=== PATIENT | female | born 1960 | race Caucasian/White ===

== ENCOUNTER 2017-01-02 17:13 | Inpatient (IN) | payer OTHER ==
--- NOTE | 2017-01-02 18:17 | PCM.HP ---
H&P History of Present Illness - General Date of Service: 01/02/17 Admit Problem/Dx: Admission Diagnosis/Problem Admission Diagnosis/Problem Pyelonephritis - History of Present Illness Initial Comments - Free Text/Narative: Ms. Lentz is a 56 yo female with PMH of seizure disorder and hypertension who presented to clinic for evaluation of 1 week of significant nausea and decreased appetite. She was actually hopeful of getting something to control her symptoms so that she could return to work. She has had lower abdominal pain significant enough that it was even difficult for her to button her pants but this has improved. She did have recurrent episodes of vomiting last week but that seems to be improved as well. She has also had some back pain, generalized myalgias, and a cough. She had some chest pain earlier in the week but this has improved, as has her cough. She cannot say that she has had any fever or chills. Although the majority of her symptoms have improved, her appetite remains poor and she started to feel dizzy when getting up from a seated position today. She has not taken anything for her symptoms. She has never had symptoms like this in the past. She has taken on average 3 tablets of ibuprofen daily. She has not taken any aleve. She denies any urinary symptoms. ROS otherwise negative as below. - Related Data Allergies/Adverse Reactions: Allergies Allergy/AdvReac Type Severity Reaction Status Date / Time No Known Allergies Allergy Verified 06/18/16 13:34 Home Medications: Home Meds carBAMazepine [Carbamazepine] 400 mg PO BID 11/08/15 [History] Hydrochlorothiazide/Lisinopril [Lisinopril/HCTZ 20-12.5 MG] 1 tab PO DAILY 06/18 [History] Past Medical History - Past Health History Medical/Surgical History: Denies Medical/Surgical History HEENT History: Reports: None Cardiovascular History: Reports: High cholesterol, Hypertension Respiratory History: Reports: None Gastrointestinal History: Reports: None Genitourinary History: Reports: None COLLEGE TUTOR History: Reports: Musculoskeletal History: Reports: None Neurological History: Reports: Cerebral aneurysms, Seizure Psychiatric History: Reports: Anxiety Endocrine/Metabolic History: Reports: None Hematologic History: Reports: None Immunologic History: Reports: None Oncologic (Cancer) History: Reports: None Dermatologic History: Reports: None - Infectious Disease History Infectious Disease History: Reports: None - Past Surgical History Head Surgeries/Procedures: Reports: Other (see below) Other Head Surgeries/Procedures: aneurysm clipping HEENT Surgical History: Reports: Eye surgery, Tonsillectomy GI Surgical History: Reports: Cholecystectomy Female Surgical History: Reports: Tubal ligation Social & Family History - Family History Neurological: Reports: CVA Psychiatric: Reports: Suicide attempt (brother committed suicide by hanging) Oncologic: Reports: Lung - Tobacco Use Smoking Status *Q: Former Smoker Tobacco Use Within Last Twelve Months: No Years of Tobacco use: 25 Packs/Tins Daily: 1 - Caffeine Use Caffeine Use: Reports: Coffee, Soda - Alcohol Use Days Per Week of Alcohol Use: 4 Number of Drinks Per Day: 4 Total Drinks Per Week: 16 Alcohol Use in Last Twelve Months: Yes - Recreational Drug Use Recreational Drug Use: No - Living Situation & Occupation Living situation: Reports: with significant other Occupation: employed H&P Review of Systems - Review of Systems: Review Of Systems: See Below General: Reports: malaise, weakness. Denies: fever, chills HEENT: Reports: no symptoms Pulmonary: Reports: Cough. Denies: Shortness of Breath, Pleuritic Chest Pain Cardiovascular: Reports: chest pain. Denies: palpitations, dyspnea on exertion , lightheadedness, syncope Gastrointestinal: Reports: Abdominal pain, Decreased appetite, Nausea, Vomiting. Denies: Constipation, Diarrhea Genitourinary: Reports: flank pain. Denies: dysuria, frequency, burning, urgency Musculoskeletal: Reports: no symptoms Skin: Reports: no symptoms Neurological: Reports: No Symptoms Exam - Exam Exam: See Below - Vital Signs Vital Signs: Last Vital Signs Temp 36.6 C 01/02/17 17:41 Pulse 85 01/02/17 17:41 Resp 18 01/02/17 17:41 BP 113/77 01/02/17 17:41 Pulse Ox 100 01/02/17 17:41 Weight: 51.764 kg - Exam General: alert, oriented, cooperative. No: mild distress, moderate distress, severe distress HEENT: Conjunctiva clear, Mucosa moist & pink, Posterior pharynx clear, Pupils equal, Pupils reactive, TMs clear Neck: supple, trachea midline. No: lymphadenopathy, thyromegaly Lungs: Clear to auscultation, Normal respiratory effort Cardiovascular: regular rate, regular rhythm, normal S1, normal S2. No: systolic murmur, diastolic murmur Abdomen: normal bowel sounds, soft, tenderness (generalized but greatest in the suprapubic region). No: organomegaly, guarding, rigidity, rebound Back Exam: CVA tenderness (L). No: CVA tenderness (R) Extremities: normal inspection, normal pulses. No: edema Skin: warm, dry, intact *Q Meaningful Use (ADM) - VTE *Q VTE Criteria *Q: - Stroke *Q Stroke Criteria *Q: - AMI *Q AMI Criteria *Q: - Problem List (1) Pyelonephritis SNOMED Code(s): 96910008 ICD Code: N12 - TUBULO-INTERSTITIAL NEPHRITIS, NOT SPCF ACUTE OR CHRONIC Status: Acute Current Visit: Yes Problem Details: - Diagnosis made based on CVA tenderness, abnormal u/a, and overall symptoms. Considered a viral syndrome but this would not explain the full picture of her symptoms. It also does not make sense that she would have an BRAN causing all of her symptoms given that her u/a was abnormal. - Slightly atypical that she does not have a leukocytosis but she does have leukopenia. - At this point, we will go ahead and treat with ceftriaxone. - She does not meet sepsis criteria. She will get IV fluids overnight and can receive boluses PRN. - Urine will be sent for culture. Would plan to await culture results before dismissing her home. (2) Acute kidney injury SNOMED Code(s): 14656222 ICD Code: N17.9 - ACUTE KIDNEY FAILURE, UNSPECIFIED Status: Acute Current Visit: Yes Problem Details: - Applications Support Specialist more than double her baseline. BUN: Applications Support Specialist is consistent with a prerenal etiology. - Presumed to be secondary to the pyelonephritis and to dehydration. No evidence this is nephrolithiasis or other obstruction. Per history, she has not been taking enough NSAIDs to acute for this increase. - U/A shows protein stable from previous and no hematuria or casts. - Will give IV fluids overnight. - Recheck BMP in the am. If creatinine is not improving, will consider a CT scan to evaluate for a possible stone. - Hold antihypertensives as well for now. - Renally dose medications. Avoid nephrotoxic agents. (3) Dehydration SNOMED Code(s): 35497763 ICD Code: E86.0 - DEHYDRATION Status: Acute Current Visit: Yes Problem Details: - Labs are consistent with dehydration. Her oropharynx is moist but maybe less so than previous. - Will do IV fluids overnight at 1.5x maintenance. Bolus as needed for hypotension. (4) Essential hypertension SNOMED Code(s): 40220053 ICD Code: I10 - ESSENTIAL (PRIMARY) HYPERTENSION Status: Chronic Current Visit: Yes Problem Details: - Hold antihypertensives given BRAN. - If creatinine improving tomorrow, will restart HCTZ first and add back lisinopril as indicated. (5) Seizure disorder SNOMED Code(s): 213302445 ICD Code: G40.909 - EPILEPSY, UNSP, NOT INTRACTABLE, WITHOUT STATUS EPILEPTICUS Status: Chronic Current Visit: Yes Problem Details: - Continue tegretol. - From what I can see, this should not really accumulate with BRAN and should not contribute to BRAN either. Therefore, will continue at home dose. Problem List Initiated/Reviewed/Updated: Yes Orders Last 24hrs: Active Orders 24 hr Category Date Time Status Admission Status [Patient Status] [ADT] Routine ADT 01/02/17 17:17 Active Notify Provider Vital Signs [RC] ASDIRECTED Care 01/02/17 18:05 Ordered Oxygen Therapy [RC] PRN Care 01/02/17 18:04 Ordered Up With Assistance [RC] ASDIRECTED Care 01/02/17 18:04 Ordered VTE/DVT Education [RC] PER UNIT ROUTINE Care 01/02/17 18:04 Ordered Vital Signs [RC] Q4H Care 01/02/17 18:04 Ordered Regular Diet [DIET] Diet 01/02/17 Dinner Ordered Acetaminophen [Tylenol] Med 01/02/17 18:04 Ordered 650 mg PO Q4H PRN Heparin Sodium Med 01/02/17 18:15 Ordered 5,000 units SUBCUT Q8H Sodium Chloride 0.9% @ 125 MLS/HR (1000ml) Med 01/02/17 18:15 Ordered Sodium Chloride 0.9% [Normal Saline] 1,000 ml IV ASDIRECTED cefTRIAXone [Rocephin] Med 01/02/17 18:15 Ordered 1 gm IVPUSH Q24H Resuscitation Status Routine Resus Stat 01/02/17 18:04 Ordered Medication Orders Acetaminophen (Tylenol) 650 mg PO Q4H PRN PRN Reason: Pain (Mild 1-3)/fever Ceftriaxone Sodium (Rocephin) 1 gm IVPUSH Q24H [facility] Heparin Sodium (Porcine) (Heparin Sodium) 5,000 units SUBCUT Q8H [facility] Sodium Chloride (Normal Saline) 1,000 mls @ 125 mls/hr IV ASDIRECTED [facility] Assessment/Plan Comment:: 56 yo female presenting with significant decreased appetite, nausea with vomiting, and dizziness who is admitted with presumed pyelonephritis and BRAN. Urine will be sent for culture. She will be treated with ceftriaxone until susceptibilities available. IV fluids overnight. Recheck labs in the am. Patient will be admitted under acute status as she will be receiving IV fluids and IV antibiotics - anticipate about 48-72 hours for her hospital stay. She will be on heparin for VTE prophylaxis given BRAN. She wishes to be full code.
[2017-01-02] MEDS: Sodium Chloride 0.9% 1,000 ML IV SCH (19:50)
[2017-01-02] MEDS: Heparin Sodium 5,000 Units/ML Vial SUBCUT SCH (19:53)
[2017-01-02] MEDS: cefTRIAXone 1 GM Vial IVPUSH SCH (19:54)
[2017-01-02] MEDS: carBAMazepine 200 MG Tab PO SCH (19:54)
[2017-01-02] MEDS: Acetaminophen 325 MG Tab PO PRN (20:05)
[2017-01-03] MEDS: Heparin Sodium 5,000 Units/ML Vial SUBCUT SCH ×5 (02:19→23:58)
[2017-01-03] MEDS: Sodium Chloride 0.9% 1,000 ML IV SCH (03:56)
--- NOTE | 2017-01-03 08:27 | PCM.PN ---
- General Info Date of Service: 01/03/17 Subjective Update: Patient notes she feels rested this morning as she slept well. She is having better urine output. Otherwise, she feels about the same as yesterday. Still with mild general abdominal pain and decreased appetite. No dysuria, fever, or chills. - Review of Systems General: Reports: No Symptoms HEENT: Reports: no symptoms Pulmonary: Reports: no symptoms Cardiovascular: Reports: No Symptoms Gastrointestinal: Reports: Abdominal pain, Decreased appetite. Denies: Nausea, Vomiting Genitourinary: Reports: no symptoms Musculoskeletal: Reports: no symptoms Skin: Reports: no symptoms - Patient Data Vitals - most recent: Last Vital Signs Temp 36.6 C 01/03/17 05:42 Pulse 75 01/03/17 02:00 Resp 16 01/03/17 05:42 BP 108/72 01/03/17 05:42 Pulse Ox 99 01/03/17 05:42 Weight - most recent: 51.764 kg I&O - last 24 hours: Intake & Output 01/02/17 01/03/17 01/03/17 22:59 06:59 14:59 Intake Total 1517 Output Total 250 300 Balance 1267 -300 Lab Results last 24 hrs: Laboratory Results - last 24 hr 01/03/17 01/03/17 Range/Units 06:15 06:15 WBC 2.2 L (4.0-10.0) x10^3/uL RBC 3.62 L (4.00-5.50) x10^6/uL Hgb 11.0 L (12.0-16.0) g/dL Hct 32.8 L (33.0-47.0) % MCV 90.6 (78.0-93.0) fL MCH 30.4 (26.0-32.0) pg MCHC 33.5 (32.0-36.0) g/dL RDW Coeff of Alejandro 12.2 (10.0-15.0) % Plt Count 166 (130-400) x10^3/uL Add Manual Diff Yes Neutrophils % (Manual) 35 L (50-80) % Band Neutrophils % 3 (0-6) % Lymphocytes % (Manual) 53 H (25-50) % Atypical Lymphs % 3 H (0) % Monocytes % (Manual) 3 (2-11) % Eosinophils % (Manual) 3 (0-4) % Platelet Estimate Adequate Sodium 140 (136-145) mmol/L Potassium 3.3 L (3.5-5.1) mmol/L Chloride 102 (98-107) mmol/L Carbon Dioxide 28 (21-32) mmol/L BUN 52 H (7-18) mg/dL Creatinine 1.3 H (0.55-1.02) mg/dL Est Cr Clr Drug Dosing 40.43 mL/min Estimated GFR (MDRD) 43 Glucose 85 (74-106) mg/dL Calcium 8.1 L (8.5-10.1) mg/dL Med Orders - Current: Current Medications Acetaminophen (Tylenol) 650 mg PO Q4H PRN PRN Reason: Pain (Mild 1-3)/fever Last Admin: 01/02/17 20:05 Dose: 650 mg Carbamazepine (Tegretol Tab) 400 mg PO BID [facility] Last Admin: 01/02/17 19:54 Dose: 400 mg Ceftriaxone Sodium (Rocephin) 1 gm IVPUSH Q24H [facility] Last Admin: 01/02/17 19:54 Dose: 1 gm Heparin Sodium (Porcine) (Heparin Sodium) 5,000 units SUBCUT Q8H [facility] Last Admin: 01/03/17 02:19 Dose: 5,000 units Potassium Chloride/Sodium Chloride (Normal Saline With 20 Meq Kcl) 1,000 mls @ 100 mls/hr IV ASDIRECTED [facility] Discontinued Medications Sodium Chloride (Normal Saline) 1,000 mls @ 125 mls/hr IV ASDIRECTED [facility] Last Admin: 01/03/17 03:56 Dose: 125 mls/hr - Exam General: alert, cooperative, no acute distress HEENT: Pupils equal, Pupils reactive, Mucous membr. moist/pink Neck: supple, trachea midline, no thyromegaly. No: lymphadenopathy Lungs: Clear to auscultation, Normal respiratory effort Cardiovascular: Regular Rate, Regular Rhythm, No Murmurs Abdomen: bowel sounds present, soft, no distension, tenderness (diffusely but most prominent in the epigastrium). No: rigidity, rebound, guarding Back Exam: CVA tenderness (L). No: CVA tenderness (R) Extremities: no edema, normal pulses Skin: warm, dry, intact - Problem List & Annotations (1) Pyelonephritis SNOMED Code(s): 91649622 Code(s): N12 - TUBULO-INTERSTITIAL NEPHRITIS, NOT SPCF ACUTE OR CHRONIC Status: Acute Current Visit: Yes Annotation/Comment:: - Diagnosis made based on CVA tenderness, abnormal u/a, and overall symptoms. Slightly atypical that she does not have a leukocytosis but she does have leukopenia. - Continue ceftriaxone. - Urine culture pending. Would plan to await culture results before dismissing her home. (2) Acute kidney injury SNOMED Code(s): 11381325 Code(s): N17.9 - ACUTE KIDNEY FAILURE, UNSPECIFIED Status: Acute Current Visit: Yes Annotation/Comment:: - Blue Split Trimmer improved slightly today. Her BUN is still quite high. - Presumed prerenal etiology based on history and BUN:Blue Split Trimmer as well as the fact that she is improving with IV fluids alone. - Presumed to be secondary to the pyelonephritis and to dehydration. - U/A shows protein stable from previous and no hematuria or casts. - Continue IV hydration. Will add potassium to fluids given hypokalemia this morning. - Recheck BMP in the am. If creatinine is not improving, will consider a CT scan to evaluate for a possible stone. - Continue to hold antihypertensives. - Renally dose medications. Avoid nephrotoxic agents. (3) Dehydration SNOMED Code(s): 94703797 Code(s): E86.0 - DEHYDRATION Status: Acute Current Visit: Yes Annotation/Comment:: - Labs are consistent with dehydration. - Continue IV fluids. (4) Hypokalemia SNOMED Code(s): 99172976 Code(s): E87.6 - HYPOKALEMIA Status: Acute Current Visit: Yes Annotation/Comment:: - Add potassium to fluids as above. (5) Essential hypertension SNOMED Code(s): 34245264 Code(s): I10 - ESSENTIAL (PRIMARY) HYPERTENSION Status: Chronic Current Visit: Yes Annotation/Comment:: - Hold antihypertensives given BRAN. - BP has been normal-low; therefore, will continue to hold both HCTZ and lisinopril. (6) Seizure disorder SNOMED Code(s): 173884543 Code(s): G40.909 - EPILEPSY, UNSP, NOT INTRACTABLE, WITHOUT STATUS EPILEPTICUS Status: Chronic Current Visit: Yes Annotation/Comment:: - Continue tegretol. - From what I can see, this should not really accumulate with BRAN and should not contribute to BRAN either. Therefore, will continue at home dose. - Problem List Review Problem List Initiated/Reviewed/Updated: Yes - My Orders Last 24 Hours: My Active Orders 01/02/17 17:17 Admission Status [Patient Status] [ADT] Routine 01/02/17 18:04 Oxygen Therapy [RC] .PRN Up With Assistance [RC] ASDIRECTED VTE/DVT Education [RC] .PRN Vital Signs [RC] 06,10,14,18,22,02 Acetaminophen [Tylenol] 650 mg PO Q4H PRN Resuscitation Status Routine 01/02/17 18:05 Notify Provider Vital Signs [RC] 06,10,14,18,22,02 01/02/17 18:15 Heparin Sodium 5,000 units SUBCUT Q8H 01/02/17 19:00 cefTRIAXone [Rocephin] 1 gm IVPUSH Q24H 01/02/17 20:00 carBAMazepine [TEGretol Tab] 400 mg PO BID 01/02/17 Dinner Regular Diet [DIET] 01/03/17 02:27 CULTURE URINE [RM] Routine 01/03/17 08:30 Sodium Chloride 0.9% with KCl 20 mEq @ 100 mL/Hr (1000 mL) NS + KCl 20mEq/L [ Normal Saline with 20 mEq KCl] 1,000 ml IV ASDIRECTED 01/04/17 05:11 BASIC METABOLIC PANEL,BMP [CHEM] Routine CBC WITH AUTO DIFF [HEME] Routine - Assessment Assessment:: 56 yo female admitted with pyelonephritis and BRAN after presenting with 1 week of multiple symptoms most notably decreased appetite, nausea, and vomiting. - Plan Plan:: Urine culture pending. Continue ceftriaxone until susceptibilities available. Continue IV fluids. Recheck labs in the am. Patient will be admitted under acute status as she will be receiving IV fluids and IV antibiotics - anticipate dismissal tomorrow. She will be on heparin for VTE prophylaxis given BRAN. She wishes to be full code.
[2017-01-03] MEDS: carBAMazepine 200 MG Tab PO SCH ×2 (08:47→19:43)
[2017-01-03] MEDS: NS + KCl 20mEq/L 1,000 ML IV SCH ×2 (08:47→18:30)
[2017-01-03] MEDS: Acetaminophen 325 MG Tab PO PRN ×2 (18:26→22:20)
[2017-01-03] MEDS: cefTRIAXone 1 GM Vial IVPUSH SCH (18:26)
[2017-01-04] MEDS: NS + KCl 20mEq/L 1,000 ML IV SCH (04:27)
[2017-01-04] MEDS: Heparin Sodium 5,000 Units/ML Vial SUBCUT SCH ×3 (07:30→23:40)
[2017-01-04] MEDS: carBAMazepine 200 MG Tab PO SCH ×2 (07:30→20:08)
[2017-01-04 07:35] LABS: CHLORIDE,CL 109 mmol/L (98-107); SODIUM,NA 144 mmol/L (136-145)
--- NOTE | 2017-01-04 08:53 | PCM.PN ---
- General Info Date of Service: 01/04/17 Subjective Update: Patient reports she feels better this morning. She continues to void without difficulty and notes that her abdominal and left flank pain are improved. She has had no fever or chills. She denies chest pain or shortness of breath. Her appetite still is not really improved and she has not been thirsty but she has also been getting IV fluids consistently since admission. - Review of Systems General: Reports: No Symptoms HEENT: Reports: no symptoms Pulmonary: Reports: no symptoms Cardiovascular: Reports: No Symptoms Gastrointestinal: Reports: Abdominal pain, Decreased appetite. Denies: Nausea, Vomiting Genitourinary: Reports: no symptoms Musculoskeletal: Reports: no symptoms Skin: Reports: no symptoms - Patient Data Vitals - most recent: Last Vital Signs Temp 36.7 C 01/04/17 07:52 Pulse 71 01/04/17 07:52 Resp 18 01/04/17 07:52 BP 159/90 H 01/04/17 07:52 Pulse Ox 98 01/04/17 07:52 Weight - most recent: 51.764 kg I&O - last 24 hours: Intake & Output 01/03/17 01/04/17 01/04/17 22:59 06:59 14:59 Intake Total 1349 1385 120 Output Total 400 600 Balance 949 785 120 Lab Results last 24 hrs: Laboratory Results - last 24 hr 01/04/17 01/04/17 Range/Units 06:25 06:25 WBC 2.2 L (4.0-10.0) x10^3/uL RBC 3.38 L (4.00-5.50) x10^6/uL Hgb 10.3 L (12.0-16.0) g/dL Hct 30.9 L (33.0-47.0) % MCV 91.4 (78.0-93.0) fL MCH 30.5 (26.0-32.0) pg MCHC 33.3 (32.0-36.0) g/dL RDW Coeff of Alejandro 12.0 (10.0-15.0) % Plt Count 173 (130-400) x10^3/uL Neut % (Auto) 38.2 L (50.0-80.0) % Lymph % (Auto) 45.9 (25.0-50.0) % Brooks % (Auto) 12.7 H (2.0-11.0) % Eos % (Auto) 2.7 (0.0-4.0) % Baso % (Auto) 0.5 (0.2-1.2) % Sodium 144 (136-145) mmol/L Potassium 3.8 (3.5-5.1) mmol/L Chloride 109 H (98-107) mmol/L Carbon Dioxide 24 (21-32) mmol/L BUN 24 H (7-18) mg/dL Creatinine 0.7 (0.55-1.02) mg/dL Est Cr Clr Drug Dosing 75.08 mL/min Estimated GFR (MDRD) > 60 Glucose 74 (74-106) mg/dL Calcium 8.2 L (8.5-10.1) mg/dL Med Orders - Current: Current Medications Acetaminophen (Tylenol) 650 mg PO Q4H PRN PRN Reason: Pain (Mild 1-3)/fever Last Admin: 01/03/17 22:20 Dose: 650 mg Carbamazepine (Tegretol Tab) 400 mg PO BID [facility] Last Admin: 01/04/17 07:30 Dose: 400 mg Ceftriaxone Sodium (Rocephin) 1 gm IVPUSH Q24H [facility] Last Admin: 01/03/17 18:26 Dose: 1 gm Heparin Sodium (Porcine) (Heparin Sodium) 5,000 units SUBCUT TID@0000,0800, 1600 [facility] Last Admin: 01/04/17 07:30 Dose: 5,000 units Hydrochlorothiazide (Hydrochlorothiazide) 12.5 mg PO DAILY [facility] Discontinued Medications Heparin Sodium (Porcine) (Heparin Sodium) 5,000 units SUBCUT Q8H [facility] Last Admin: 01/03/17 12:26 Dose: Not Given Sodium Chloride (Normal Saline) 1,000 mls @ 125 mls/hr IV ASDIRECTED [facility] Last Admin: 01/03/17 03:56 Dose: 125 mls/hr Potassium Chloride/Sodium Chloride (Normal Saline With 20 Meq Kcl) 1,000 mls @ 100 mls/hr IV ASDIRECTED [facility] Last Admin: 01/04/17 04:27 Dose: 100 mls/hr - Exam General: alert, cooperative, no acute distress HEENT: Mucous membr. moist/pink Neck: supple, no thyromegaly. No: lymphadenopathy Lungs: Clear to auscultation, Normal respiratory effort Cardiovascular: Regular Rate, Regular Rhythm, No Murmurs Abdomen: bowel sounds present, soft, no distension, tenderness (mild LUQ tenderness - improved from yesterday). No: rigidity, rebound, guarding Back Exam: CVA tenderness (L) (less prominent than yesterday). No: CVA tenderness (R) Extremities: no edema, normal pulses Skin: warm, dry, intact - Problem List & Annotations (1) Pyelonephritis SNOMED Code(s): 70741777 Code(s): N12 - TUBULO-INTERSTITIAL NEPHRITIS, NOT SPCF ACUTE OR CHRONIC Status: Acute Current Visit: Yes Annotation/Comment:: - Diagnosis made based on CVA tenderness, abnormal u/a, and overall symptoms. Slightly atypical that she does not have a leukocytosis but she does have leukopenia. - Continue ceftriaxone. - Urine culture pending. Would plan to await culture results before dismissing her home. - No imaging necessary at this point unless she were to spike a temperature or have worsening symptoms. (2) Acute kidney injury SNOMED Code(s): 74284286 Code(s): N17.9 - ACUTE KIDNEY FAILURE, UNSPECIFIED Status: Resolved Current Visit: Yes Annotation/Comment:: - Guest Services Manager back to normal today; BUN near normal. - Presumed prerenal etiology based on history, BUN:Guest Services Manager, and resolution with IV fluids alone. Likely secondary to the pyelonephritis and to dehydration. - Will d/c IV fluids today. - Encouraged her to push fluids PO. She will need to prove adequate PO intake to maintain hydration before dismissal home. - Continue to hold lisinopril but restart HCTZ given increased BPs overnight. - Renally dose medications. Avoid nephrotoxic agents. (3) Dehydration SNOMED Code(s): 99103038 Code(s): E86.0 - DEHYDRATION Status: Resolved Current Visit: Yes Annotation/Comment:: - Resolved this am. - As above, d/c IV fluids. Will encourage PO's today and anticipate dismissal tomorrow if she can keep up with this. (4) Hypokalemia SNOMED Code(s): 44967394 Code(s): E87.6 - HYPOKALEMIA Status: Resolved Current Visit: Yes Annotation/Comment:: - K normal today. (5) Essential hypertension SNOMED Code(s): 30945670 Code(s): I10 - ESSENTIAL (PRIMARY) HYPERTENSION Status: Chronic Current Visit: Yes Annotation/Comment:: - BP mildly up overnight. - Restart HCTZ; hold lisinopril for now but will watch today and potentially add this back as well. (6) Seizure disorder SNOMED Code(s): 948962374 Code(s): G40.909 - EPILEPSY, UNSP, NOT INTRACTABLE, WITHOUT STATUS EPILEPTICUS Status: Chronic Current Visit: Yes Annotation/Comment:: - Continue tegretol. - From what I can see, this should not really accumulate with BRAN and should not contribute to BRAN either. Therefore, will continue at home dose. - Problem List Review Problem List Initiated/Reviewed/Updated: Yes - My Orders Last 24 Hours: My Active Orders 01/03/17 16:00 Heparin Sodium 5,000 units SUBCUT TID@0000,0800,1600 01/04/17 08:30 Hydrochlorothiazide 12.5 mg PO DAILY - Assessment Assessment:: 56 yo female admitted with pyelonephritis and BRAN after presenting with 1 week of multiple symptoms most notably decreased appetite, nausea, and vomiting. Symptoms are slowly improving but her appetite remains poor. - Plan Plan:: Urine culture pending. Continue ceftriaxone until susceptibilities available. D/ C IV fluids; push PO fluids today. Recheck labs in the am. Hgb has been downtrending but I suspect this is related to hemodilution; will recheck tomorrow once she has been off IV fluids. Patient is admitted under acute status - anticipate dismissal tomorrow. She will be on heparin for VTE prophylaxis given BRAN. She wishes to be full code.
[2017-01-04] MEDS: Hydrochlorothiazide 12.5 MG Cap PO SCH (09:55)
[2017-01-04] MEDS: Acetaminophen 325 MG Tab PO PRN (11:23)
[2017-01-04] MEDS: cefTRIAXone 1 GM Vial IVPUSH SCH ×2 (17:57→18:07)
[2017-01-05 06:30] VITALS: BP 120/77
[2017-01-05 07:43] LABS: CHLORIDE,CL 104 mmol/L (98-107); SODIUM,NA 142 mmol/L (136-145)
[2017-01-05] MEDS ORDERED: Lisinopril 20 MG Tab PO SCH (08:00)
[2017-01-05] MEDS: Hydrochlorothiazide 12.5 MG Cap PO SCH (08:08)
[2017-01-05] MEDS: carBAMazepine 200 MG Tab PO SCH (08:08)
[2017-01-05] MEDS: Heparin Sodium 5,000 Units/ML Vial SUBCUT SCH (08:09)
--- NOTE | 2017-01-05 08:13 | PCM.DCSUM1 ---
Discharge Summary - Hospital Course Brief History: Ms. Lentz is a 56 yo female who presented to clinic for evaluation of multiple symptoms (nausea, vomiting, abdominal pain, cough, and very poor appetite) over the preceding week. Evaluation was consistent with a diagnosis of dehydration and pyelonephritis. Due to the severity of her creatinine increase, inpatient admission was recommended and she agreed. - Discharge Data Discharge Date: 01/05/17 Discharge Disposition: Home, Self-Care 01 Condition: Good - Discharge Diagnosis/Problem(s) (1) Pyelonephritis SNOMED Code(s): 16074698 ICD Code: N12 - TUBULO-INTERSTITIAL NEPHRITIS, NOT SPCF ACUTE OR CHRONIC Status: Acute Current Visit: Yes Problem Details: Diagnosis made based on CVA tenderness, abnormal u/a, and overall symptoms. Slightly atypical that she does not have a leukocytosis but she does have leukopenia. She has been treated with 3 doses of ceftriaxone. Her urine culture has shown mixed kell; therefore , I am unable to guide antibiotics by this. Since she has improved on ceftriaxone, she will be dismissed on cefdinir. (2) Acute kidney injury SNOMED Code(s): 65038199 ICD Code: N17.9 - ACUTE KIDNEY FAILURE, UNSPECIFIED Status: Resolved Current Visit: Yes Problem Details: Creatinine elevated on admission. Presumed to be secondary to dehydration and pyelonephritis based on symptoms and BUN:Tool Adjuster ratio. She was treated with IV fluids and IV antibiotics. Her creatinine progressively improved and both her creatinine and BUN are normal at the time of dismissal. Her blood pressure medications were also held on admission but have been added back due to elevated blood pressures later in her hospital stay. (3) Dehydration SNOMED Code(s): 41550113 ICD Code: E86.0 - DEHYDRATION Status: Resolved Current Visit: Yes Problem Details: Received IV fluids for the first 36 hours of hospitalization and has now been able to keep up hydration by mouth over the past 24 hours. (4) Hypokalemia SNOMED Code(s): 61054063 ICD Code: E87.6 - HYPOKALEMIA Status: Resolved Current Visit: Yes Problem Details: Potassium low on hospital day #1 but improved with addition of potassium to IV fluids. Has been normal yesterday and today. (5) Essential hypertension SNOMED Code(s): 44608397 ICD Code: I10 - ESSENTIAL (PRIMARY) HYPERTENSION Status: Chronic Current Visit: Yes Problem Details: Her antihypertensives were held initially due to soft blood pressures on admission and acute kidney injury. Her HCTZ was restarted yesterday due to higher blood pressures and lisinopril will be restarted today for the same reason. She will resume her home medications upon dismissal. (6) Seizure disorder SNOMED Code(s): 689281497 ICD Code: G40.909 - EPILEPSY, UNSP, NOT INTRACTABLE, WITHOUT STATUS EPILEPTICUS Status: Chronic Current Visit: Yes Problem Details: She had no seizures before or during admission. Her tegretol was continued. - Patient Summary/Data Operative Procedure(s) Performed: none Complications: none Consults: none Labs Pending at D/C: none Recommended Follow-up Testing/Procedures: CBC, BMP Planned Operative Procedure(s) after DC: none Hospital Course: Please see details under problems above. She was given IV fluids and IV antibiotics with slow improvement in symptoms. By the day of dismissal, she was completely asymptomatic and comfortable with dismissal home. She will complete a 10 day course of antibiotics with another 7 days of cefdinir. - Patient Instructions Diet: Usual Diet as Tolerated Activity: As Tolerated - Discharge Plan Prescriptions/Med Rec: Cefdinir [IJD: Cefdinir] 300 mg PO BID #14 cap Home Medications: Home Meds carBAMazepine [Carbamazepine] 400 mg PO BID 11/08/15 [History] Hydrochlorothiazide/Lisinopril [Lisinopril/HCTZ 20-12.5 MG] 1 tab PO DAILY 06/18 [History] Cefdinir [IJD: Cefdinir] 300 mg PO BID #14 cap 01/05/17 [Rx] Referrals: Clinton Corado MD [ED Physician] - 01/12/17 - Discharge Summary/Plan Comment DC Time >30 min.: No - General Info Date of Service: 01/05/17 Subjective Update: Feeling much better this morning. Appetite has improved and she has been able to tolerate adequate PO intake over the past 24 hours. She denies any abdominal or flank pain. ROS otherwise negative as below. - Review of Systems General: Reports: No Symptoms HEENT: Reports: no symptoms Pulmonary: Reports: no symptoms Cardiovascular: Reports: No Symptoms Gastrointestinal: Reports: No symptoms Genitourinary: Reports: no symptoms Musculoskeletal: Reports: no symptoms Skin: Reports: no symptoms Neurological: Reports: No Symptoms - Patient Data Vitals - Most Recent: Last Vital Signs Temp 36.4 C 01/05/17 06:00 Pulse 62 01/05/17 06:00 Resp 20 01/05/17 06:00 BP 120/77 01/05/17 06:00 Pulse Ox 97 01/05/17 06:00 Weight - Most Recent: 51.764 kg I&O - Last 24 hours: Intake & Output 01/04/17 01/05/17 01/05/17 22:59 06:59 14:59 Intake Total 400 Output Total 400 450 Balance -400 -50 Lab Results - Last 24 hrs: Laboratory Results - last 24 hr 01/05/17 01/05/17 Range/Units 07:05 07:05 WBC 2.8 L (4.0-10.0) x10^3/uL RBC 3.54 L (4.00-5.50) x10^6/uL Hgb 10.7 L (12.0-16.0) g/dL Hct 32.1 L (33.0-47.0) % MCV 90.7 (78.0-93.0) fL MCH 30.2 (26.0-32.0) pg MCHC 33.3 (32.0-36.0) g/dL RDW Coeff of Alejandro 11.9 (10.0-15.0) % Plt Count 211 (130-400) x10^3/uL Add Manual Diff Yes Neutrophils % (Manual) 37 L (50-80) % Band Neutrophils % 2 (0-6) % Lymphocytes % (Manual) 48 (25-50) % Monocytes % (Manual) 9 (2-11) % Eosinophils % (Manual) 3 (0-4) % Basophils % (Manual) 1 (0-1) % Platelet Estimate Adequate Sodium 142 (136-145) mmol/L Potassium 3.6 (3.5-5.1) mmol/L Chloride 104 (98-107) mmol/L Carbon Dioxide 29 (21-32) mmol/L BUN 14 (7-18) mg/dL Creatinine 0.6 (0.55-1.02) mg/dL Est Cr Clr Drug Dosing 87.59 mL/min Estimated GFR (MDRD) > 60 Glucose 85 (74-106) mg/dL Calcium 8.5 (8.5-10.1) mg/dL CANDACE Results - Last 24 hrs: Microbiology 01/03/17 02:27 Urine Culture - Preliminary Urine, Clean Catch MIXED KELL DAY 1 Med Orders - Current: Current Medications Acetaminophen (Tylenol) 650 mg PO Q4H PRN PRN Reason: Pain (Mild 1-3)/fever Last Admin: 01/04/17 11:23 Dose: 650 mg Carbamazepine (Tegretol Tab) 400 mg PO BID COUNT INCLUDES THE [facility] Last Admin: 01/04/17 20:08 Dose: 400 mg Ceftriaxone Sodium (Rocephin) 1 gm IVPUSH Q24H COUNT INCLUDES THE [facility] Last Admin: 01/04/17 18:07 Dose: Not Given Heparin Sodium (Porcine) (Heparin Sodium) 5,000 units SUBCUT TID@0000,0800, 1600 COUNT INCLUDES THE [facility] Last Admin: 01/04/17 23:40 Dose: 5,000 units Hydrochlorothiazide (Hydrochlorothiazide) 12.5 mg PO DAILY COUNT INCLUDES THE [facility] Last Admin: 01/04/17 09:55 Dose: 12.5 mg Lisinopril (Prinivil) 20 mg PO DAILY COUNT INCLUDES THE [facility] Discontinued Medications Heparin Sodium (Porcine) (Heparin Sodium) 5,000 units SUBCUT Q8H COUNT INCLUDES THE [facility] Last Admin: 01/03/17 12:26 Dose: Not Given Sodium Chloride (Normal Saline) 1,000 mls @ 125 mls/hr IV ASDIRECTED COUNT INCLUDES THE [facility] Last Admin: 01/03/17 03:56 Dose: 125 mls/hr Potassium Chloride/Sodium Chloride (Normal Saline With 20 Meq Kcl) 1,000 mls @ 100 mls/hr IV ASDIRECTED COUNT INCLUDES THE [facility] Last Admin: 01/04/17 04:27 Dose: 100 mls/hr - Exam General: Reports: alert, cooperative, no acute distress HEENT: Reports: Pupils equal, Pupils reactive, Mucous membr. moist/pink Neck: Reports: supple, trachea midline, no thyromegaly. Denies: lymphadenopathy Lungs: Reports: Clear to auscultation, Normal respiratory effort Cardiovascular: Reports: Regular Rate, Regular Rhythm, No Murmurs Abdomen: Reports: bowel sounds present, soft, no tenderness, no distension Back Exam: Denies: CVA tenderness (L), CVA tenderness (R) Extremities: Reports: no edema, normal pulses Skin: Reports: warm, dry, intact *Q Meaningful Use (DIS) - VTE *Q VTE Criteria *Q: - Stroke *Q Stroke Criteria *Q: - AMI *Q AMI Criteria *Q:
== END 2017-01-05 10:05 | disposition home or self-care (01) | DRG 690 ==
LOC: VM.MS 17:17
PROVIDERS: ADMIT Family Medicine; ATTEND Family Medicine
DX: N12 Tubulo-interstitial nephritis, not specified as acute or chronic (principal); N17.9 Acute kidney failure, unspecified; E86.0 Dehydration; E87.6 Hypokalemia; I10 Essential (primary) hypertension; G40.909 Epilepsy, unspecified, not intractable, without status epilepticus; E78.5 Hyperlipidemia, unspecified
CPT/HCPCS: 36415; 80048; 85025; 87086; A9270-GY; J0696; J1644; J3480; J7030

== ENCOUNTER 2017-06-03 17:40 | Emergency (ER) | payer OTHER ==
[2017-06-03 18:26] VITALS: BP 130/91
[2017-06-03 18:31] LABS: CHLORIDE,CL 92 mmol/L (98-107); SODIUM,NA 131 mmol/L (136-145)
[2017-06-03] MEDS ORDERED: Ketorolac 15 MG/ML SDV IVPUSH ONE (18:31)
[2017-06-03] MEDS ORDERED: Sodium Chloride 0.9% 1,000 ML IV SCH ×2 (18:45)
--- NOTE | 2017-06-03 19:00 | EDM.PDOC ---
ED HPI GENERAL MEDICAL PROBLEM - General Chief Complaint: Neuro Symptoms/Deficits Stated Complaint: CODE GREEN Time Seen by Provider: 06/03/17 17:47 Source of Information: Reports: Patient, EMS History Limitations: Reports: Altered Mental Status, Other (expressive aphasia) - History of Present Illness INITIAL COMMENTS - FREE TEXT/NARRATIVE: patient brought in by neighbor and he is uncertain of her exact symptoms. she came to his house and wanted him to take her to ER. She seemed short of breath and was having difficulty with speech. Patient is unable to answer questions appropriately due to expressive aphasia Onset: Unknown/Unsure Duration: Other (her mother sopke to her at 1030 am and patient seemed well at that time, it is unknown when exactly symptoms started) Location: Reports: Head Associated Symptoms: Reports: Confusion, Chest Pain, Headaches, Seizure, Other ( patient indicates had a seizure earlier today) Head Pain Score (Numeric/FACES): 10 Past Medical History Cardiovascular History: Reports: High Cholesterol, Hypertension Neurological History: Reports: Cerebral Aneurysms (clipped), Seizure ED ROS GENERAL - Review of Systems Review Of Systems: Unable To Obtain (patient has extreme difficulty answering question except with shake of head yes or no, answers are not always consistent with question) Constitutional: Reports: Weakness HEENT: Reports: No Symptoms Respiratory: Reports: No Symptoms. Denies: Shortness of Breath, Wheezing, Pleuritic Chest Pain, Cough Cardiovascular: Reports: Chest Pain. Denies: Dyspnea on Exertion, Edema, Lightheadedness Endocrine: Reports: No Symptoms GI/Abdominal: Reports: No Symptoms : Reports: No Symptoms Musculoskeletal: Reports: No Symptoms Skin: Reports: No Symptoms Neurological: Reports: Confusion, Headache, Seizure, Change in Speech Psychiatric: Reports: Anxiety Hematologic/Lymphatic: Reports: No Symptoms Immunologic: Reports: No Symptoms ED EXAM, NEURO - Physical Exam Exam: See Below Exam Limited By: Altered Mental Status General Appearance: Alert, WD/WN, Anxious, Other (appears frustrated and anxious with inability to answer questions) Eye Exam: Bilateral Eye: EOMI, PERRL Ears: Normal External Exam, Normal Canal, Hearing Grossly Normal, Normal TMs Nose: Normal Inspection, Normal Mucosa, No Blood Throat/Mouth: Normal Inspection, Normal Lips, Normal Teeth, Normal Gums, Normal Oropharynx, Normal Voice, No Airway Compromise Head Exam: Atraumatic, Normocephalic Neck: Normal Inspection, Supple, Non-Tender, Full Range of Motion Respiratory/Chest: No Respiratory Distress, Lungs Clear, Normal Breath Sounds, No Accessory Muscle Use, Chest Non-Tender Cardiovascular: Normal Peripheral Pulses, Regular Rate, Rhythm, No Edema, No Gallop, No JVD, No Murmur, No Rub, Other (c/o midsternal chest pain) GI/Abdominal: Normal Bowel Sounds, Soft, Non-Tender, No Organomegaly, No Distention, No Abnormal Bruit, No Mass (Female) Exam: Deferred Rectal (Female) Exam: Deferred Neurological: Alert, Normal Dorsiflexion, CN II-XII Intact, Normal Plantar Flexion, Normal Reflexes (has expressive aphasia, completely disoriented to person, place and time, trouble with word finding, unable to comprehend has so has some receptive aphasia as well. Motor exam within normal limits, no deficit noted) Back Exam: Normal Inspection, Full Range of Motion, NT Extremities: Normal Inspection, Normal Range of Motion, Non-Tender, No Pedal Edema, Normal Capillary Refill Psychiatric: Anxious Skin Exam: Warm, Dry, Intact, Normal Color, No Rash EKG INTERPRETATION EKG Date: 06/03/17 Time: 17:45 Rhythm: Other (sinus tach with nonspecific T wave abnormality) P-Wave: Present QRS: Normal ST-T: Other (nonspecific changes) QT: Normal Comparison: NA - No Prior EKG EKG Interpretation Comments: sinus tach rate 126 with nonspecific changes Course - Vital Signs Last Recorded V/S: Last Vital Signs Temp 37.3 C 06/03/17 18:06 Pulse 125 H 06/03/17 18:06 Resp 12 06/03/17 18:06 BP 130/91 H 06/03/17 18:06 Pulse Ox - Orders/Labs/Meds Orders: Active Orders 24 hr Category Date Time Status EKG 12 Lead [EKG Documentation Completion] [RC] STAT Care 06/03/17 17:48 Ordered Chest 1V Frontal [CR] Stat Exams 06/03/17 18:32 Taken Head wo Cont [CT] Stat Exams 06/03/17 17:47 Taken Sodium Chloride 0.9% [Normal Saline] 1,000 ml Med 06/03/17 18:45 Active IV ASDIRECTED Medication Orders Sodium Chloride (Normal Saline) 1,000 mls @ 999 mls/hr IV ASDIRECTED AMANDA Labs: Laboratory Tests 06/03/17 06/03/17 06/03/17 Range/Units 17:35 17:50 17:50 WBC 11.9 H (4.0-10.0) x10^3/uL RBC 4.25 (4.00-5.50) x10^6/uL Hgb 12.5 (12.0-16.0) g/dL Hct 36.7 (33.0-47.0) % MCV 86.4 (78.0-93.0) fL MCH 29.4 (26.0-32.0) pg MCHC 34.1 (32.0-36.0) g/dL RDW Coeff of Alejandro 13.1 (10.0-15.0) % Plt Count 255 (130-400) x10^3/uL Neut % (Auto) 87.2 H (50.0-80.0) % Lymph % (Auto) 5.7 L (25.0-50.0) % Calloway % (Auto) 6.7 (2.0-11.0) % Eos % (Auto) 0.1 (0.0-4.0) % Baso % (Auto) 0.3 (0.2-1.2) % PT 11.0 (9.8-11.8) SEC INR 1.0 L (2.0-3.5) APTT 23.4 (22.0-34.0) SEC Sodium 131 L (136-145) mmol/L Potassium 3.7 (3.5-5.1) mmol/L Chloride 92 L (98-107) mmol/L Carbon Dioxide 24 (21-32) mmol/L BUN 16 (7-18) mg/dL Creatinine 1.1 H (0.55-1.02) mg/dL Est Cr Clr Drug Dosing TNP Estimated GFR (MDRD) 52 Glucose 111 H (74-106) mg/dL Calcium 9.2 (8.5-10.1) mg/dL Corrected Calcium 9.04 (8.5-10.1) mg/dL Total Bilirubin 0.5 (0.2-1.0) mg/dL AST 27 (15-37) U/L ALT 18 (14-59) U/L Alkaline Phosphatase 95 (46-116) U/L Creatine Kinase 158 (26-192) U/L Creatine Kinase Index 3.0 (0.0-4.0) % CK-MB (CK-2) 4.7 H (0.0-3.6) ng/mL POC Troponin I (0.00-0.08) ng/mL Total Protein 8.3 H (6.4-8.2) g/dL Albumin 4.2 (3.4-5.0) g/dL Globulin 4.1 Albumin/Globulin Ratio 1.02 POC Result Comm 06/03/17 Range/Units 17:56 WBC (4.0-10.0) x10^3/uL RBC (4.00-5.50) x10^6/uL Hgb (12.0-16.0) g/dL Hct (33.0-47.0) % MCV (78.0-93.0) fL MCH (26.0-32.0) pg MCHC (32.0-36.0) g/dL RDW Coeff of Alejandro (10.0-15.0) % Plt Count (130-400) x10^3/uL Neut % (Auto) (50.0-80.0) % Lymph % (Auto) (25.0-50.0) % Calloway % (Auto) (2.0-11.0) % Eos % (Auto) (0.0-4.0) % Baso % (Auto) (0.2-1.2) % PT (9.8-11.8) SEC INR (2.0-3.5) APTT (22.0-34.0) SEC Sodium (136-145) mmol/L Potassium (3.5-5.1) mmol/L Chloride (98-107) mmol/L Carbon Dioxide (21-32) mmol/L BUN (7-18) mg/dL Creatinine (0.55-1.02) mg/dL Est Cr Clr Drug Dosing Estimated GFR (MDRD) Glucose (74-106) mg/dL Calcium (8.5-10.1) mg/dL Corrected Calcium (8.5-10.1) mg/dL Total Bilirubin (0.2-1.0) mg/dL AST (15-37) U/L ALT (14-59) U/L Alkaline Phosphatase (46-116) U/L Creatine Kinase (26-192) U/L Creatine Kinase Index (0.0-4.0) % CK-MB (CK-2) (0.0-3.6) ng/mL POC Troponin I 0.99 H* (0.00-0.08) ng/mL Total Protein (6.4-8.2) g/dL Albumin (3.4-5.0) g/dL Globulin Albumin/Globulin Ratio POC Result Comm Called critical res Meds: Medications Generic Name Dose Route Start Last Admin Trade Name Freq PRN Reason Stop Dose Admin Sodium Chloride 1,000 mls @ 999 mls/hr 06/03/17 18:45 Normal Saline IV ASDIRECTED AMANDA Discontinued Medications Generic Name Dose Route Start Last Admin Trade Name Freq PRN Reason Stop Dose Admin Sodium Chloride 1,000 mls @ 999 mls/hr 06/03/17 18:45 Normal Saline IV ASDIRECTED AMANDA Ketorolac Tromethamine 15 mg 06/03/17 18:31 06/03/17 18:36 Toradol IVPUSH 06/03/17 18:32 15 mg ONETIME ONE Administration - Radiology Interpretation Free Text/Narrative:: No acute plain film abnormality on CT suggestive of bleed. 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 CXR shows no pneumonia or edema CT Results Date: 06/03/17 CT Results Time: 18:00 - Re-Assessments/Exams Free Text/Narrative Re-Assessment/Exam: 06/03/17 20:03 Patient seen and evaluated in ER. Stroke protocol initiated. CT done shortly after arrival. CT reviewed by myself and discussed with radiology. No acute bleed noted. I contacted [facility] and spoke with Neurologist who agreed to accept patient in transfer. No alteplase recommended due to uncertain onset of symptoms. Patient complaining of headache and chest pain as well. EKG done. Troponin is elevated. Given toradol 15 mg IV with modest improvement in pain. Neurology recommended urgent transfer. Vitals remained stable throughout ER stay. Will transfer urgently via ALS ambulance. Departure - Departure Time of Disposition: 18:52 Disposition: DC/Tfer to Acute Hospital 02 Condition: Fair Clinical Impression: CVA (cerebral vascular accident) Qualifiers: CVA mechanism: unspecified Qualified Code(s): I63.9 - Cerebral infarction, unspecified - Discharge Information Referrals: Yolanda Kaminski MD [Primary Care Provider] - Forms: ED Department Discharge, Interfacility Transfer EMTALA - My Orders Last 24 Hours: My Active Orders 06/03/17 17:47 Head wo Cont [CT] Stat 06/03/17 17:48 EKG 12 Lead [EKG Documentation Completion] [RC] STAT 06/03/17 18:32 Chest 1V Frontal [CR] Stat 06/03/17 18:45 Sodium Chloride 0.9% [Normal Saline] 1,000 ml IV ASDIRECTED - Assessment/Plan Last 24 Hours: My Active Orders 06/03/17 17:47 Head wo Cont [CT] Stat 06/03/17 17:48 EKG 12 Lead [EKG Documentation Completion] [RC] STAT 06/03/17 18:32 Chest 1V Frontal [CR] Stat 06/03/17 18:45 Sodium Chloride 0.9% [Normal Saline] 1,000 ml IV ASDIRECTED
== END 2017-06-03 18:58 | disposition short-term general hospital (02) ==
LOC: EDBD 17:40 → MERGE 17:40 → VM.ED 17:40
DX: I63.9 Cerebral infarction, unspecified (principal); E78.00 Pure hypercholesterolemia, unspecified; I10 Essential (primary) hypertension; Z86.69 Personal history of other diseases of the nervous system and sense organs
CPT/HCPCS: 36415; 70450; 71010; 80053; 82550; 82553; 82962; 84484; 85025; 85610; 85730; 93005; 96361; 96374; 99285; J1885

== ENCOUNTER 2017-10-04 14:52 | Emergency (ER) | payer OTHER ==
[2017-10-04] MEDS ORDERED: Labetalol 20 MG/4 ML Syringe IVPUSH ONE (15:01)
[2017-10-04] MEDS ORDERED: Sodium Chloride 0.9% 10 ML Syringe FLUSH PRN (15:01)
[2017-10-04] MEDS ORDERED: Labetalol 20 MG/4 ML Syringe ONE (15:03)
[2017-10-04] MEDS ORDERED: niCARdipine HCl 25 MG in Sodium Chloride 0.9% 250 ML IV ONE (15:23)
[2017-10-04] MEDS ORDERED: LORazepam 2 MG/ML SDV ONE (15:38)
[2017-10-04 15:47] LABS: CHLORIDE,CL 101 mmol/L (98-107); SODIUM,NA 140 mmol/L (136-145)
--- NOTE | 2017-10-04 16:05 | EDM.PDOC ---
ED HPI GENERAL MEDICAL PROBLEM - General Chief Complaint: Neurological Problem Stated Complaint: PHIL RODRIGUEZ Time Seen by Provider: 10/04/17 14:52 Source of Information: Reports: Patient History Limitations: Reports: Other (aphasia) - History of Present Illness INITIAL COMMENTS - FREE TEXT/NARRATIVE: Pt. presents to ER with seizure activity and hypertension. Pt. sister states that she talked to the pt. at between 9-9:30 this AM. She states that at that time, pt. was alert and speaking coherently, and complained of not feeling well. She stated that she had come home early from work and was going to rest. Pt. sister called her back at 1:45 and spoke to her for 26 min. At that time, pt. had very confused speech but was able to state that she wanted her sister to come take her to the hospital. Her sister called EMS at 2:13 pm. On their arrival, pt. was somewhat confused and had what sounds like a partial seizure, followed by a tonic-clonic, full-body seizure enroute to the hospital. Pt. was given 5mg Valium IV which stopped the seizure. Pt. was postictal on arrival to the ER. A code green had been called prior to arrival to the ER. Pt. has a history of "aneurysm" according to family, which was surgically repaired approx. 15 years ago. She does have a seizure history for which she is prescribed Tegretol. Family also states that she had an NH requiring 1 stent last year. 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, Other (see below) (valium) - Related Data Allergies Allergy/AdvReac Type Severity Reaction Status Date / Time No Known Allergies Allergy Verified 06/18/16 13:34 Home Meds: Home Meds carBAMazepine [Carbamazepine] 400 mg PO BID 11/08/15 [History] Hydrochlorothiazide/Lisinopril [Lisinopril/HCTZ 20-12.5 MG] 1 tab PO DAILY 06/18 [History] Cefdinir [IJD: Cefdinir] 300 mg PO BID #14 cap 01/05/17 [Rx] Past Medical History - Past Health History Medical/Surgical History: Denies Medical/Surgical History HEENT History: Reports: None Cardiovascular History: Reports: High Cholesterol, Hypertension Respiratory History: Reports: None Gastrointestinal History: Reports: None Genitourinary History: Reports: None 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: Musculoskeletal History: Reports: None Neurological History: Reports: Cerebral Aneurysms (clipped), Seizure Psychiatric History: Reports: Anxiety Endocrine/Metabolic History: Reports: None Hematologic History: Reports: None Immunologic History: Reports: None Oncologic (Cancer) History: Reports: None Dermatologic History: Reports: None - Infectious Disease History Infectious Disease History: Reports: None - Past Surgical History Head Surgeries/Procedures: Reports: Other (See Below) HEENT Surgical History: Reports: Eye Surgery, Tonsillectomy Female Surgical History: Reports: Tubal Ligation Social & Family History - Family History Family Medical History: Noncontributory Neurological: Reports: CVA Psychiatric: Reports: Suicide Attempt Oncologic: Reports: Lung - Tobacco Use Smoking Status *Q: Former Smoker Years of Tobacco use: 25 Packs/Tins Daily: 1 - Caffeine Use Caffeine Use: Reports: Coffee, Soda - Alcohol Use Days Per Week of Alcohol Use: 4 Number of Drinks Per Day: 4 Total Drinks Per Week: 16 - Recreational Drug Use Recreational Drug Use: No - Living Situation & Occupation Living situation: Reports: with Significant Other Occupation: Employed ED ROS GENERAL - Review of Systems Review Of Systems: Unable To Obtain ED EXAM, GENERAL - Physical Exam Exam: See Below Exam Limited By: No Limitations General Appearance: Alert, WD/WN, No Apparent Distress Eye Exam: Bilateral Eye: PERRL, Other (gaze shifted to L) Ears: Normal External Exam, Normal Canal, Hearing Grossly Normal, Normal TMs Nose: Normal Inspection, Normal Mucosa, No Blood Throat/Mouth: Normal Inspection, Normal Lips, Normal Teeth, Normal Gums, Normal Oropharynx, Normal Voice, No Airway Compromise Head: Atraumatic, Normocephalic Neck: Normal Inspection, Supple, Non-Tender, Full Range of Motion Respiratory/Chest: No Respiratory Distress, Lungs Clear, Normal Breath Sounds, No Accessory Muscle Use, Chest Non-Tender Cardiovascular: Normal Peripheral Pulses, Regular Rate, Rhythm, No Edema, No Gallop, No JVD, No Murmur, No Rub Peripheral Pulses: 2+: Radial (L), Radial (R) GI/Abdominal: Normal Bowel Sounds, Soft, Non-Tender, No Organomegaly, No Distention, No Abnormal Bruit, No Mass Back Exam: Normal Inspection, Full Range of Motion, NT Neurological: Alert, Slow to Respond (Please see NIH stroke scale attached. Initially, pt. had profound R sided paralysis and complete sphasia) Skin Exam: Warm, Dry, Intact, Normal Color, No Rash Lymphatic: No Adenopathy EKG INTERPRETATION Rhythm: NSR Course - Orders/Labs/Meds Orders: Active Orders 24 hr Category Date Time Status EKG Documentation Completion [RC] STAT Care 10/04/17 15:01 Active Chest 1V Frontal [CR] Stat Exams 10/04/17 15:02 Taken Head wo Cont [CT] Routine Exams 10/04/17 15:01 Taken UA W/MICROSCOPIC [URIN] Stat Lab 10/04/17 15:01 Uncollected URINE DRUG SCREEN,POC [POC] Stat Lab 10/04/17 15:04 Uncollected Sodium Chloride 0.9% [Saline Flush] Med 10/04/17 15:01 Active 10 ml FLUSH ASDIRECTED PRN Peripheral IV Insertion Adult [OM.PC] Routine Oth 10/04/17 15:02 Ordered Medication Orders Sodium Chloride (Saline Flush) 10 ml FLUSH ASDIRECTED PRN PRN Reason: Keep Vein Open Labs: Laboratory Tests 10/04/17 10/04/17 10/04/17 Range/Units 15:00 15:00 15:06 WBC 7.0 (4.0-10.0) x10^3/uL RBC 4.23 (4.00-5.50) x10^6/uL Hgb 12.4 (12.0-16.0) g/dL Hct 38.3 (33.0-47.0) % MCV 90.5 D (78.0-93.0) fL MCH 29.3 (26.0-32.0) pg MCHC 32.4 (32.0-36.0) g/dL RDW Coeff of Alejandro 13.0 (10.0-15.0) % Plt Count 272 (130-400) x10^3/uL Neut % (Auto) 61.1 (50.0-80.0) % Lymph % (Auto) 30.1 (25.0-50.0) % [place] % (Auto) 7.0 (2.0-11.0) % Eos % (Auto) 1.4 (0.0-4.0) % Baso % (Auto) 0.4 (0.2-1.2) % PT 10.4 (9.8-11.8) SEC INR 1.0 L (2.0-3.5) Sodium 140 (136-145) mmol/L Potassium 3.3 L (3.5-5.1) mmol/L Chloride 101 (98-107) mmol/L Carbon Dioxide 20 L (21-32) mmol/L BUN 19 H (7-18) mg/dL Creatinine 1.0 (0.55-1.02) mg/dL Est Cr Clr Drug Dosing TNP Estimated GFR (MDRD) 58 Glucose 144 H (74-106) mg/dL Calcium 8.8 (8.5-10.1) mg/dL Corrected Calcium 8.96 (8.5-10.1) mg/dL Total Bilirubin 0.4 (0.2-1.0) mg/dL AST 27 (15-37) U/L ALT 21 (14-59) U/L Alkaline Phosphatase 129 H (46-116) U/L POC Troponin I (0.00-0.08) ng/mL C-Reactive Protein < 0.2 (<=0.9) mg/dL Total Protein 7.9 (6.4-8.2) g/dL Albumin 3.8 (3.4-5.0) g/dL Globulin 4.1 Albumin/Globulin Ratio 0.93 Ethyl Alcohol < 3 (0-3) mg/dL 10/04/17 Range/Units 15:13 WBC (4.0-10.0) x10^3/uL RBC (4.00-5.50) x10^6/uL Hgb (12.0-16.0) g/dL Hct (33.0-47.0) % MCV (78.0-93.0) fL MCH (26.0-32.0) pg MCHC (32.0-36.0) g/dL RDW Coeff of Alejandro (10.0-15.0) % Plt Count (130-400) x10^3/uL Neut % (Auto) (50.0-80.0) % Lymph % (Auto) (25.0-50.0) % [place] % (Auto) (2.0-11.0) % Eos % (Auto) (0.0-4.0) % Baso % (Auto) (0.2-1.2) % PT (9.8-11.8) SEC INR (2.0-3.5) Sodium (136-145) mmol/L Potassium (3.5-5.1) mmol/L Chloride (98-107) mmol/L Carbon Dioxide (21-32) mmol/L BUN (7-18) mg/dL Creatinine (0.55-1.02) mg/dL Est Cr Clr Drug Dosing Estimated GFR (MDRD) Glucose (74-106) mg/dL Calcium (8.5-10.1) mg/dL Corrected Calcium (8.5-10.1) mg/dL Total Bilirubin (0.2-1.0) mg/dL AST (15-37) U/L ALT (14-59) U/L Alkaline Phosphatase (46-116) U/L POC Troponin I 0.00 (0.00-0.08) ng/mL C-Reactive Protein (<=0.9) mg/dL Total Protein (6.4-8.2) g/dL Albumin (3.4-5.0) g/dL Globulin Albumin/Globulin Ratio Ethyl Alcohol (0-3) mg/dL Meds: Medications Generic Name Dose Route Start Last Admin Trade Name Freq PRN Reason Stop Dose Admin Sodium Chloride 10 ml 10/04/17 15:01 Saline Flush FLUSH ASDIRECTED PRN Keep Vein Open Discontinued Medications Generic Name Dose Route Start Last Admin Trade Name Freq PRN Reason Stop Dose Admin Labetalol HCl 20 mg 10/04/17 15:01 Normodyne IVPUSH 10/04/17 15:02 NOW ONE Protocol Labetalol HCl Confirm 10/04/17 15:03 Normodyne Administered 10/04/17 15:04 Dose 20 mg .ROUTE .STK-MED ONE Lorazepam Confirm 10/04/17 15:38 Ativan Administered 10/04/17 15:39 Dose 2 mg .ROUTE .STK-MED ONE - Radiology Interpretation Free Text/Narrative:: At 1559, pt. CT was negative for acute pathology Departure - Departure Time of Disposition: 16:30 Disposition: DC/Tfer to Acute Hospital 02 Condition: Serious Clinical Impression: Seizure CVA (cerebral vascular accident) Qualifiers: CVA mechanism: unspecified Qualified Code(s): I63.9 - Cerebral infarction, unspecified - Discharge Information Referrals: Clinton Corado MD [Primary Care Provider] - Forms: ED Department Discharge - My Orders Last 24 Hours: My Active Orders 10/04/17 15:01 EKG Documentation Completion [RC] STAT Head wo Cont [CT] Routine UA W/MICROSCOPIC [URIN] Stat Sodium Chloride 0.9% [Saline Flush] 10 ml FLUSH ASDIRECTED PRN 10/04/17 15:02 Chest 1V Frontal [CR] Stat Peripheral IV Insertion Adult [OM.PC] Routine 10/04/17 15:04 URINE DRUG SCREEN,POC [POC] Stat - Assessment/Plan Last 24 Hours: My Active Orders 10/04/17 15:01 EKG Documentation Completion [RC] STAT Head wo Cont [CT] Routine UA W/MICROSCOPIC [URIN] Stat Sodium Chloride 0.9% [Saline Flush] 10 ml FLUSH ASDIRECTED PRN 10/04/17 15:02 Chest 1V Frontal [CR] Stat Peripheral IV Insertion Adult [OM.PC] Routine 10/04/17 15:04 URINE DRUG SCREEN,POC [POC] Stat Assessment:: 1. Seizure 2. Hypertensive emergency 3. R sided weakness; seizure aura vs. resolving CVA/TIA. Plan: Pt. does not meet criteria for thrombolytic therapy. She is outside of the timeframe (>6 hours) and symptoms are resolving. I spoke with Dr. Silva at [facility] and he stated that the pt. often has similar neuro symtoms prior to seizing, and felt that this was the case today. Decision was made to proceed with transfer to [facility] in [place] due to need for neuro eval and monitoring Nicardipine drip. Family was present during her care in the ER and was briefed of the situation. She will be transported by [facility] ground ambulance.
== END 2017-10-04 17:05 | disposition short-term general hospital (02) ==
LOC: VM.ED 14:52
DX: I63.9 Cerebral infarction, unspecified (principal); R56.9 Unspecified convulsions; I10 Essential (primary) hypertension; Z87.891 Personal history of nicotine dependence; Z79.899 Other long term (current) drug therapy
CPT/HCPCS: 36415; 70450; 71045; 80053; 84484; 85025; 85610; 86140; 93005; 96365; 96366; 96375; 99291; 99292; G0480; 82962; A9270-GY; J2060; J7050

== ENCOUNTER 2018-05-24 15:36 | Emergency (ER) | payer OTHER ==
[2018-05-24] MEDS ORDERED: Sodium Chloride 0.9% 1,000 ML IV ONE (15:43)
[2018-05-24] MEDS ORDERED: Metoprolol Tartrate 5 MG/5 ML SDV IVPUSH ONE (16:16)
[2018-05-24 16:21] LABS: ANION GAP 10.4 mmol/L (10-20); CHLORIDE,CL 100 mmol/L (98-107); SODIUM,NA 134 mmol/L (136-145)
[2018-05-24 16:32] VITALS: BP 178/121
--- NOTE | 2018-05-24 16:44 | EDM.PDOC ---
ED HPI GENERAL MEDICAL PROBLEM - General Chief Complaint: Neurological Problem Time Seen by Provider: 05/24/18 15:40 Source of Information: Reports: EMS, Family History Limitations: Reports: Altered Mental Status - History of Present Illness INITIAL COMMENTS - FREE TEXT/NARRATIVE: Patient is brought in via EMS. His sister reports she visited with her this morning at 5:30 in the morning and at that time she appeared to be normal. She did stop by this afternoon at approximately 3 PM sister said she didn't feel very good and that the ambulance should be called. Unknown whether or not she had a seizure prior to her sister arriving. Once EMS crew did arrive however she did have 2 witnessed seizures that lasted approximately 30 seconds a piece. She was given 2.5 mg of Valium IV at that time. She does arrive to the emergency room as a code green here. She does not answer questions correctly, she is unable to tell me her name, date, month, or where she is at. I've given her a NIH score of 9 with the inability to answer either question of months or age, partial facial palsy on the right side, right arm weakness and minimal drift. She also has diminished pinprick sensation to the right upper extremity, her language is poor as she is unable to describe pictures are read sentences. She has a history of [place] with plavix a current medication, does take keppra and tegretol. She does have a recent similar episode that was negative for acute stroke. Onset: Today, Unknown/Unsure Duration: Other (unknown) Associated Symptoms: Reports: Diaphoresis - Related Data Allergies Allergy/AdvReac Type Severity Reaction Status Date / Time No Known Allergies Allergy Verified 06/18/16 13:34 Home Meds: Home Meds carBAMazepine [Carbamazepine] 400 mg PO BID 11/08/15 [History] Hydrochlorothiazide/Lisinopril [Lisinopril/HCTZ 20-12.5 MG] 1 tab PO DAILY 06/18 [History] Cefdinir [IJD: Cefdinir] 300 mg PO BID #14 cap 01/05/17 [Rx] Past Medical History - Past Health History Medical/Surgical History: Denies Medical/Surgical History HEENT History: Reports: None Cardiovascular History: Reports: High Cholesterol, Hypertension Respiratory History: Reports: None Gastrointestinal History: Reports: None Genitourinary History: Reports: None [employer]PER[employer]OR [employer]ODUCTION History: Reports: Musculoskeletal History: Reports: None Neurological History: Reports: Cerebral Aneurysms (clipped), Seizure Psychiatric History: Reports: Anxiety Endocrine/Metabolic History: Reports: None Hematologic History: Reports: None Immunologic History: Reports: None Oncologic (Cancer) History: Reports: None Dermatologic History: Reports: None - Infectious Disease History Infectious Disease History: Reports: None - Past Surgical History Head Surgeries/Procedures: Reports: Other (See Below) HEENT Surgical History: Reports: Eye Surgery, Tonsillectomy Female Surgical History: Reports: Tubal Ligation Social & Family History - Family History Family Medical History: Noncontributory Neurological: Reports: CVA Psychiatric: Reports: Suicide Attempt Oncologic: Reports: Lung - Caffeine Use Caffeine Use: Reports: Coffee, Soda - Living Situation & Occupation Living situation: Reports: with Significant Other Occupation: Employed ED ROS GENERAL - Review of Systems Review Of Systems: Unable To Obtain ED EXAM, NEURO - Physical Exam Exam: See Below Exam Limited By: Altered Mental Status General Appearance: Alert, Anxious Eye Exam: Bilateral Eye: EOMI, Normal Inspection, PERRL Ears: Normal TMs Nose: Normal Inspection, Normal Mucosa, No Blood Throat/Mouth: Dysphagia Head Exam: Other (facial droop, right side) Respiratory/Chest: No Respiratory Distress, Lungs Clear, Normal Breath Sounds, No Accessory Muscle Use, Chest Non-Tender Cardiovascular: Normal Peripheral Pulses, Regular Rate, Rhythm, No Edema, No Gallop, No JVD, No Murmur, No Rub GI/Abdominal: Normal Bowel Sounds, Soft, Non-Tender, No Organomegaly, No Distention, No Abnormal Bruit, No Mass Neurological: Alert, Abnormal Light Touch, Abnormal Pin Prick (right side upper extremity less sensative than the other 3 extremities), Other (equal grasp, slightly weaker right sided leg strength) Back Exam: Normal Inspection, Full Range of Motion Extremities: Normal Inspection, Normal Range of Motion, Non-Tender Psychiatric: Anxious Skin Exam: Warm, Dry, Intact Course - Vital Signs Last Recorded V/S: Last Vital Signs Temp Pulse Resp BP 178/121 H 05/24/18 16:32 Pulse Ox - Orders/Labs/Meds Orders: Active Orders 24 hr Category Date Time Status EKG 12 Lead [EKG Documentation Completion] [RC] STAT Care 05/24/18 15:44 Ordered Chest 1V Frontal [CR] Stat Exams 05/24/18 15:41 Ordered Head wo Cont [CT] Stat Exams 05/24/18 15:41 Ordered Labs: Laboratory Tests 05/24/18 05/24/18 05/24/18 Range/Units 15:45 15:45 15:45 WBC 4.1 (4.0-10.0) x10^3/uL RBC 3.90 L (4.00-5.50) x10^6/uL Hgb 11.9 L (12.0-16.0) g/dL Hct 35.8 (33.0-47.0) % MCV 91.8 (78.0-93.0) fL MCH 30.5 (26.0-32.0) pg MCHC 33.2 (32.0-36.0) g/dL RDW Coeff of Alejandro 14.0 (10.0-15.0) % Plt Count 191 D (130-400) x10^3/uL Neut % (Auto) 67.1 (50.0-80.0) % Lymph % (Auto) 21.8 L (25.0-50.0) % [place] % (Auto) 8.2 (2.0-11.0) % Eos % (Auto) 2.2 (0.0-4.0) % Baso % (Auto) 0.7 (0.2-1.2) % PT 10.4 (9.6-11.4) SEC INR 1.0 L (2.0-3.5) Sodium 134 L (136-145) mmol/L Potassium 3.4 L (3.5-5.1) mmol/L Chloride 100 (98-107) mmol/L Carbon Dioxide 27 (21-32) mmol/L Anion Gap 10.4 (10-20) mmol/L BUN 13 (7-18) mg/dL Creatinine 0.6 (0.55-1.02) mg/dL Est Cr Clr Drug Dosing TNP Estimated GFR (MDRD) > 60 Glucose 94 (74-106) mg/dL POC Glucose (74-106) mg/dL Calcium 9.0 (8.5-10.1) mg/dL Corrected Calcium 9.32 (8.5-10.1) mg/dL Phosphorus 4.0 (2.6-4.7) mg/dL Magnesium 1.8 (1.8-2.4) mg/dL Total Bilirubin 0.4 (0.2-1.0) mg/dL AST 30 (15-37) U/L ALT 19 (14-59) U/L Alkaline Phosphatase 115 (46-116) U/L Creatine Kinase 90 (26-192) U/L POC Troponin I (0.00-0.08) ng/mL NT-Pro-B Natriuret Pep 282 H (<=125) pg/mL Total Protein 7.7 (6.4-8.2) g/dL Albumin 3.6 (3.4-5.0) g/dL Globulin 4.1 Albumin/Globulin Ratio 0.88 Urine Color (YELLOW) Urine Appearance (CLEAR) Urine pH (5.0-8.0) Ur Specific [place] Urine Protein (NEGATIVE) mg/dL Urine Glucose (UA) (NEGATIVE) mg/dL Urine Ketones (NEGATIVE) mg/dL Urine Occult Blood (NEGATIVE) Urine Nitrite (NEGATIVE) Urine Bilirubin (NEGATIVE) Urine Urobilinogen (0.2) EU/dL Ur Leukocyte Esterase (NEGATIVE) Urine RBC (NOT SEEN) /HPF Urine WBC (NOT SEEN) /HPF Ur Squamous Epith Cells (NEGATIVE) /HPF Urine Bacteria (NEGATIVE) /HPF Urine Mucus (NEGATIVE) /LPF 05/24/18 05/24/18 05/24/18 Range/Units 15:45 15:50 15:56 WBC (4.0-10.0) x10^3/uL RBC (4.00-5.50) x10^6/uL Hgb (12.0-16.0) g/dL Hct (33.0-47.0) % MCV (78.0-93.0) fL MCH (26.0-32.0) pg MCHC (32.0-36.0) g/dL RDW Coeff of Alejandro (10.0-15.0) % Plt Count (130-400) x10^3/uL Neut % (Auto) (50.0-80.0) % Lymph % (Auto) (25.0-50.0) % [place] % (Auto) (2.0-11.0) % Eos % (Auto) (0.0-4.0) % Baso % (Auto) (0.2-1.2) % PT (9.6-11.4) SEC INR (2.0-3.5) Sodium (136-145) mmol/L Potassium (3.5-5.1) mmol/L Chloride (98-107) mmol/L Carbon Dioxide (21-32) mmol/L Anion Gap (10-20) mmol/L BUN (7-18) mg/dL Creatinine (0.55-1.02) mg/dL Est Cr Clr Drug Dosing Estimated GFR (MDRD) Glucose (74-106) mg/dL POC Glucose 85 (74-106) mg/dL Calcium (8.5-10.1) mg/dL Corrected Calcium (8.5-10.1) mg/dL Phosphorus (2.6-4.7) mg/dL Magnesium (1.8-2.4) mg/dL Total Bilirubin (0.2-1.0) mg/dL AST (15-37) U/L ALT (14-59) U/L Alkaline Phosphatase (46-116) U/L Creatine Kinase (26-192) U/L POC Troponin I 0.00 (0.00-0.08) ng/mL NT-Pro-B Natriuret Pep (<=125) pg/mL Total Protein (6.4-8.2) g/dL Albumin (3.4-5.0) g/dL Globulin Albumin/Globulin Ratio Urine Color Yellow (YELLOW) Urine Appearance Clear (CLEAR) Urine pH 7.0 (5.0-8.0) Ur Specific [place] 1.015 Urine Protein Trace H (NEGATIVE) mg/dL Urine Glucose (UA) Negative (NEGATIVE) mg/dL Urine Ketones Negative (NEGATIVE) mg/dL Urine Occult Blood Trace-intact H (NEGATIVE) Urine Nitrite Negative (NEGATIVE) Urine Bilirubin Negative (NEGATIVE) Urine Urobilinogen 0.2 (0.2) EU/dL Ur Leukocyte Esterase Trace H (NEGATIVE) Urine RBC 0-5 (NOT SEEN) /HPF Urine WBC 0-5 (NOT SEEN) /HPF Ur Squamous Epith Cells Few H (NEGATIVE) /HPF Urine Bacteria Few H (NEGATIVE) /HPF Urine Mucus Few H (NEGATIVE) /LPF Meds: Medications Discontinued Medications Generic Name Dose Route Start Last Admin Trade Name Freq PRN Reason Stop Dose Admin Sodium Chloride 1,000 mls @ 999 mls/hr 05/24/18 15:43 05/24/18 15:45 Normal Saline IV 05/24/18 16:43 999 mls/hr ONETIME ONE Administration Metoprolol Tartrate 5 mg 05/24/18 16:16 05/24/18 16:32 Lopressor IVPUSH 05/24/18 16:17 5 mg ONETIME ONE Administration Departure - Departure Time of Disposition: 16:40 Disposition: DC/Tfer to Acute Hospital 02 Condition: Good Clinical Impression: Seizure disorder CVA (cerebral vascular accident) Qualifiers: CVA mechanism: unspecified Qualified Code(s): I63.9 - Cerebral infarction, unspecified - Discharge Information *PRESCRIPTION DRUG MONITORING PROGRAM REVIEWED*: Not Applicable *COPY OF PRESCRIPTION DRUG MONITORING REPORT IN PATIENT EDDY: Not Applicable Referrals: PCP,Not In Area [Primary Care Provider] - Forms: ED Department Discharge, Interfacility Transfer EMTALA ED Communication - ED Communication Date/Time Date: 05/24/18 Time Called: 16:30 - Discussed Case With (1) Discussed Case With (1): Admitting Provider, 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 Galvin with neurology in [facility] with report also given to the ED physician Dr. Marquez) - My Orders Last 24 Hours: My Active Orders 05/24/18 15:41 Chest 1V Frontal [CR] Stat Head wo Cont [CT] Stat 05/24/18 15:44 EKG 12 Lead [EKG Documentation Completion] [RC] STAT - Assessment/Plan Last 24 Hours: My Active Orders 05/24/18 15:41 Chest 1V Frontal [CR] Stat Head wo Cont [CT] Stat 05/24/18 15:44 EKG 12 Lead [EKG Documentation Completion] [RC] STAT
== END 2018-05-24 16:40 | disposition short-term general hospital (02) ==
LOC: VM.ED 15:36
DX: G43.909 Migraine, unspecified, not intractable, without status migrainosus (principal); I63.9 Cerebral infarction, unspecified; E78.00 Pure hypercholesterolemia, unspecified; I10 Essential (primary) hypertension; F41.9 Anxiety disorder, unspecified; Z79.899 Other long term (current) drug therapy
CPT/HCPCS: 36415; 70450; 71045; 80053; 81001; 82550; 82962; 83735; 83880; 84100; 84484; 85025; 85610; 96361; 96374; 99285; J3490; J7030

== ENCOUNTER 2019-03-05 11:08 | Inpatient (IN) | payer MEDICAID, OTHER ==
[2019-03-05] MEDS ORDERED: HYDROmorphone 1 MG/ML Syringe IVPUSH PRN (11:33)
[2019-03-05] MEDS ORDERED: Ondansetron 4 MG/2 ML SDV IV PRN (11:33)
[2019-03-05] MEDS ORDERED: Acetaminophen 325 MG Tab PO PRN (11:38)
[2019-03-05 12:07] LABS: CHLORIDE,CL 99 mmol/L (98-107); SODIUM,NA 138 mmol/L (136-145)
[2019-03-05] MEDS: Pantoprazole 40 MG Vial IVPUSH SCH ×2 (12:12→21:08)
[2019-03-05 12:14] LABS: ANION GAP 24.7 mmol/L (10-20)
[2019-03-05] MEDS ORDERED: Nitroglycerin 0.4 MG Tab.SL SL PRN (12:23)
[2019-03-05] MEDS: Acetaminophen 325 MG Tab PO PRN ×2 (12:24→17:34)
--- NOTE | 2019-03-05 13:36 | CT ---
[id number] CT/CT Abdomen Pelvis WO IV EXAM: CT Abdomen Pelvis WO IV CLINICAL DATA: UGIB,WEIGHT LOSS. COMPARISON STUDY: None. FINDINGS: Lung bases are clear. Liver, spleen, gallbladder, pancreas, adrenal glands, and kidneys are unremarkable. Colon wall demonstrates mild amount of thickening and edema diffusely throughout its length with multiple areas of subtle pericolonic fat stranding. Early changes of colitis are possible. No small Uterus and adnexal regions are unremarkable. Bowel obstruction. No free fluid or pneumoperitoneum. Aorta atherosclerosis. No aneurysm. Scattered changes of mild spondylosis throughout the spine. No fracture or osseous lesion. IMPRESSION: Possible mild changes of pancolitis. Otherwise, no radiographic abnormality identified involving the bowel or elsewhere in the abdomen/pelvis. Rajinder Bernstein MD 03/05/19 0815 Thank you for allowing us to participate in the care of your patient.
[2019-03-05] MEDS: Lactated Ringers 1,000 ML IV SCH ×2 (14:06→21:02)
[2019-03-05] MEDS ORDERED: Magnesium Sulfate/Water 2 GM in Premix Bag 1 BAG IV ONE (15:54)
--- NOTE | 2019-03-05 15:57 | PCM.HP ---
H&P History of Present Illness - General Date of Service: 03/05/19 Admit Problem/Dx: Admission Diagnosis/Problem Admission Diagnosis/Problem GI bleed not requiring more than 4 units of blood in 24 hours, ICU, or surgery - History of Present Illness Initial Comments - Free Text/Narative: Assessment / Plan Non-intractable vomiting, presence of nausea not specified, unspecified vomiting type - COMPLETE BLOOD COUNT WITH DIFFERENTIAL; Future - COMPREHENSIVE METABOLIC PANEL; Future - AMYLASE; Future - FERRITIN; Future - ondansetron (ZOFRAN) injection solution 4 mg - lactated ringers IV solution (bolus) SOLN 1,000 mL Melena - COMPLETE BLOOD COUNT WITH DIFFERENTIAL; Future - COMPREHENSIVE METABOLIC PANEL; Future - AMYLASE; Future - FERRITIN; Future - ondansetron (ZOFRAN) injection solution 4 mg - lactated ringers IV solution (bolus) SOLN 1,000 mL Plan: Vomiting with dark stool and emesis by hx Likely UGIB, would have to be slow bleed if Hgb and BUN still normal after 4d Mild acidosis and dehydration by chem, CBC is unchanged from 6w ago BP and pulse responded to 1L challenge here with shock index now <1and feeling better Risk factorsfor PUD ofDAPT, Etoh, Former smoker Probably PUD but CA in DDx given wt loss and smoking/etoh hx Admit to [facility] for IVF,monitor H/Hand chem- if remains stable could do EGD outpatient next week but if BP and Hgb dropping would need to go to [facility] to do inpatient Zofran PRN, need to tolerate PO to get seizure and cardiac meds CT abd pelvisgiven wt loss and acidosis- show equivocal colitis NOS, she denies any abdominal pain, fever or diarrhea Protonixbid Stop plavix,>1y from PCI w/ BMS HPI / History / ROS Vomiting has not been able to eat for 4 days, vomiting, nausea Still tolerating bit of meds and fluids Emesis described as dark/black color. Stools also described as dark and black. Denies any epigastric or abdominal pain. Prior to this starting she feels like she was doing well without any abdominal issues. Her weight is down 10-15 pounds over past couple months. PMH seizure, CAD PCI w/ BMS 21mo ago, still on DAPT "She cannot stop plavix, even temporarily until one year post PCI. Continue aspirin, coreg, statin" No other NSAIDs Only hx of abd surg is GB Quit smoking Still has captain cookie drink every day or two Family history stroke and lung cancer. Denies any family history of GI issues. Medications w MedicationsPriortoVisit w Outpatient Medications Prior to Visit Medication Sig Dispense Refill atorvaSTATin (LIPITOR) 40 mg tablet TAKE 1 TABLET BY MOUTH ONE TIME A DAY 90 tablet 3 clopidogrel (PLAVIX) 75 mg tablet Take 1 tablet (75 mg) by mouth 1 time per day 90 tablet 3 lisinopril (PRINIVIL, ZESTRIL) 10 mg tablet Take 1 tablet (10 mg) by mouth 2 times a day 180 tablet 4 carVEDilol (COREG) 6.25 mg tablet TAKE 1 TABLET BY MOUTH 2 TIMES A DAY WITH MEALS 180 tablet 4 aspirin 81 mg enteric coated tablet Take 81 mg by mouth 1 time per day levetiracetam (KEPPRA) 500 mg tablet Take 1 tablet (500 mg) by mouth 2 times a day 180 tablet 3 carBAMazepine (TEGRETOL) 200 mg tablet TAKE 2 TABLETS BY MOUTH 2 TIMES A DAY 360 tablet 3 acetaminophen (TYLENOL) 325 mg tablet Take 650 mg by mouth Every 4 hours as needed for mild pain or headache diphenhydrAMINE-acetaminophen (TYLENOL PM) 25-500 mg tablet Take 1 tablet by mouth every night at bedtime nitroglycerin (NITROSTAT) 0.4 mg sublingual tablet Dissolve 1 tablet (0.4 mg) under the tongue Every 5 minutes as needed for chest pain 30 tablet 1 No facility-administered medications prior to visit. Allergies No Known Allergies Problem List w w w Patient Active Problem List l Diagnosis w w Essential hypertension, benign w w History of cerebral aneurysm repair w w Seizure disorder (HCC) w w Anxiety disorder w w Hyperlipidemia w w Seizure (HCC) w w Atherosclerosis of [place] coronary artery of [place] heart without angina pectoris w w S/p bare metal coronary artery stent w w Chronic systolic CHF (congestive heart failure) ([facility]) w w Acute encephalopathy w w Hypertensive urgency Medical/Surgical/Family/SocialHistory w PastMedicalHistory w Past Medical History: Diagnosis Date Anxiety disorder 09/29/2010 Essential hypertension, benign 09/28/2007 History of cerebral aneurysm repair 09/28/2007 During one of her pregnancies Seizure disorder (HCC) 09/28/2007 w PastSurgicalHistory w Past Surgical History: Procedure Laterality Date BRAIN SURGERY Clipping of a cerebral aneurysm, no clips seen on CT. okay for MRI. DELIVERY ONLY 20120119 CHOLECYSTECTOMY 20120119 EYE SURGERY cataract right LIGATION TRANSECTION FALLOPIAN TUBE ABD VAGINAL APPRCH UNILAT BILAT 20120119 TONSILLECTOMY TRANSCATHETER PLACE INTRACORONARY STENT(S) PERCUTANEOUS; SNGL VESSEL 05/2017 Coronary Stent Single w FamilyHistory w Family History Problem Relation Age of Onset Thyroid Mother Hyperlipidemia Mother Stroke Father Not otherwise listed - Cancer Father Lung Ca Negative Sister Negative Brother Suicide Brother w SocialHistory w Social History Socioeconomic History Marital status: Single Spouse name: Not on file Number of children: 1 Years of education: Not on file Highest education level: Not on file Occupational History Occupation: Unemployed Tobacco Use Smoking status: Former Smoker Packs/day: 1.00 Years: 25.00 Pack years: 25.00 Types: Cigarettes Last attempt to quit: 09/11/2002 Years since quittin.4 Smokeless tobacco: Never Used Substance and Sexual Activity Alcohol use: Yes Alcohol/week: 4.2 oz Types: 7 Standard drinks or equivalent per week Comment: Quit 06/03/17, very seldome Drug use: No Social History Narrative Patient lives: [place] 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 Negative for chillsand fever. Respiratory: Negative forshortness of breath. Cardiovascular: Negative forchest pain,palpitationsand leg swelling. Gastrointestinal: Positive fornauseaand vomiting. Negative forabdominal distention,abdominal pain,constipationand diarrhea. Blood in stool:?, melena . Genitourinary: Negative fordysuria. Decreased urine volume:? Neurological: Positive fordizzinessand light-headedness. Negative forsyncope. Physical / Results BP 96/60 Pulse 98 Temp 98.7 F (37.1 C) (Tympanic) Wt 46.1 kg (101 lb 9.6 oz ) SpO2 100% BMI 16.91 kg/m2||LMP: 01/09/2013 Physical Exam Constitutional: She appearswell-developedand well-nourished. Weak and bit unsteady with standing Cardiovascular:Normal rate,regular rhythmand normal heart sounds. Borderline tachy Pulmonary/Chest:Effort normaland breath sounds normal. Abdominal:Soft. She exhibitsno mass. There isno tenderness. There isno reboundand no guarding. Skin: Skin iswarmand dry. There ispallor. Psychiatric: She has anormal mood and affect. Headache Pain Score (Numeric/FACES): 3 - Related Data Allergies/Adverse Reactions: Allergies Allergy/AdvReac Type Severity Reaction Status Date / Time No Known Allergies Allergy Verified 03/05/19 11:44 Home Medications: Home Meds carBAMazepine [Carbamazepine] 400 mg PO BID 11/08/15 [History] Acetaminophen 650 mg PO Q4HR PRN 03/05/19 [History] Acetaminophen/Diphenhydramine [Acetaminophen Pm Caplet] 1 each PO BEDTIME [History] Aspirin [Halfprin] 81 mg PO DAILY 03/05/19 [History] Carvedilol [Coreg] 6.25 mg PO BIDMEALS 03/05/19 [History] Clopidogrel [Plavix] 75 mg PO DAILY 03/05/19 [History] Lisinopril 10 mg PO BID 03/05/19 [History] Nitroglycerin [Nitrostat] 0.4 mg SL ASDIRECTED PRN 03/05/19 [History] atorvaSTATin [Lipitor] 40 mg PO BEDTIME 03/05/19 [History] levETIRAcetam [Keppra] 500 mg PO BID 03/05/19 [History] Past Medical History - Past Health History Medical/Surgical History: Denies Medical/Surgical History HEENT History: Reports: None Cardiovascular History: Reports: High Cholesterol, Hypertension, Prior Cardiac Arrest, Stents Respiratory History: Reports: None Gastrointestinal History: Reports: None, Cholelithiasis Genitourinary History: Reports: None [employer] History: Reports: Musculoskeletal History: Reports: None Neurological History: Reports: Cerebral Aneurysms, Seizure Psychiatric History: Reports: Anxiety Endocrine/Metabolic History: Reports: None Hematologic History: Reports: None Immunologic History: Reports: None Oncologic (Cancer) History: Reports: None Dermatologic History: Reports: None - Infectious Disease History Infectious Disease History: Reports: None - Past Surgical History Head Surgeries/Procedures: Reports: Other (See Below) HEENT Surgical History: Reports: Eye Surgery, Tonsillectomy Female Surgical History: Reports: Tubal Ligation Social & Family History - Family History Family Medical History: Noncontributory Neurological: Reports: CVA Psychiatric: Reports: Suicide Attempt Oncologic: Reports: Lung - Tobacco Use Smoking Status *Q: Former Smoker Used Tobacco, but Quit: Yes Month/Year Tobacco Last Used: 11/12 Second Hand Smoke Exposure: No - Caffeine Use Caffeine Use: Reports: Soda Caffeine Use Comment: Diet mountain love, 2 cans per day - Alcohol Use Days Per Week of Alcohol Use: 4 Number of Drinks Per Day: 1 Total Drinks Per Week: 4 Date of Last Drink: 02/28/19 Time of Last Drink: 06:00 - Recreational Drug Use Recreational Drug Use: No - Living Situation & Occupation Living situation: Reports: with Significant Other Occupation: Employed H&P Review of Systems - Review of Systems: Review Of Systems: See Below Exam - Exam Exam: See Below - Vital Signs Vital Signs: Last Vital Signs Temp 36.8 C 03/05/19 14:00 Pulse 89 03/05/19 14:00 Resp 14 03/05/19 14:00 BP 107/67 03/05/19 14:00 Pulse Ox 100 03/05/19 14:00 Weight: 46.266 kg - Patient Data Lab Results Last 24 hrs: Laboratory Results - last 24 hr 03/05/19 03/05/19 03/05/19 Range/Units 11:45 11:45 11:45 WBC 4.4 (4.0-10.0) x10^3/uL RBC 3.55 L (4.00-5.50) x10^6/uL Hgb 11.2 L (12.0-16.0) g/dL Hct 35.1 (33.0-47.0) % MCV 98.9 H D (78.0-93.0) fL MCH 31.5 (26.0-32.0) pg MCHC 31.9 L (32.0-36.0) g/dL RDW Coeff of Alejandro 12.6 (10.0-15.0) % Plt Count 212 (130-400) x10^3/uL Neut % (Auto) 64.1 (50.0-80.0) % Lymph % (Auto) 26.2 (25.0-50.0) % [place] % (Auto) 7.4 (2.0-11.0) % Eos % (Auto) 1.6 (0.0-4.0) % Baso % (Auto) 0.7 (0.2-1.2) % Sodium 138 (136-145) mmol/L Potassium 3.7 (3.5-5.1) mmol/L Chloride 99 (98-107) mmol/L Carbon Dioxide 18 L (21-32) mmol/L Anion Gap 24.7 H (10-20) mmol/L BUN 14 (7-18) mg/dL Creatinine 1.0 (0.55-1.02) mg/dL Est Cr Clr Drug Dosing 45.88 mL/min Estimated GFR (MDRD) 57 Glucose 82 (74-106) mg/dL Lactic Acid 0.7 (0.4-2.0) mmol/L Calcium 9.0 (8.5-10.1) mg/dL Magnesium 1.4 L (1.8-2.4) mg/dL C-Reactive Protein < 0.2 (<=0.9) mg/dL Lipase 193 (73-393) U/L Result Diagrams: 03/05/19 11:45 03/05/19 11:45 Problem List Initiated/Reviewed/Updated: Yes Orders Last 24hrs: Active Orders 24 hr Category Date Time Status Admission Status [Patient Status] [ADT] Routine ADT 03/05/19 11:13 Active Patient Status [ADT] Routine ADT 03/05/19 11:33 Active Ambulate [RC] 08,20 Care 03/05/19 11:34 Active Oxygen Therapy [RC] .PRN Care 03/05/19 11:33 Active Up With Assistance [RC] 08,20 Care 03/05/19 11:33 Active Vital Signs [RC] 06,10,14,18,22,02 Care 03/05/19 11:33 Active Clear Liquid Diet [DIET] Diet 03/05/19 Lunch Active BASIC METABOLIC PANEL,BMP [CHEM] AM Lab 03/06/19 05:11 Ordered CBC WITH AUTO DIFF [HEME] AM Lab 03/06/19 05:11 Ordered HEMOGLOBIN [HEME] Routine Lab 03/05/19 19:00 Ordered Acetaminophen [Tylenol] Med 03/05/19 11:33 Active 650 mg PO Q4H PRN Acetaminophen/Diphenhydramine [Tylenol PM Extra Med 03/05/19 20:00 Active Strength] 1 tab PO BEDTIME Aspirin [Halfprin] Med 03/06/19 08:00 Active 81 mg PO DAILY Carvedilol [Coreg] Med 03/05/19 18:00 Active 6.25 mg PO BIDMEALS HYDROmorphone [Dilaudid] Med 03/05/19 11:33 Active 0.25 mg IVPUSH Q2H PRN Lactated Ringers [Ringers, Lactated] 1,000 ml Med 03/05/19 12:30 Active IV ASDIRECTED Magnesium Sulfate/Water [Magnesium Sulfate in Water Med 03/05/19 15:54 Ordered Premix] 2 gm Premix Bag 1 bag IV ONETIME Nitroglycerin [Nitrostat] Med 03/05/19 12:23 Active 0.4 mg SL Q5M PRN Ondansetron [Zofran] Med 03/05/19 11:33 Active 4 mg IV Q6H PRN Pantoprazole [ProTONIX IV] Med 03/05/19 11:45 Active 40 mg IVPUSH BID@1000,2200 atorvaSTATin [Lipitor] Med 03/05/19 20:00 Active 40 mg PO BEDTIME carBAMazepine [TEGretol Tab] Med 03/05/19 20:00 Active 400 mg PO BID levETIRAcetam [Keppra] Med 03/05/19 20:00 Active 500 mg PO BID Resuscitation Status Routine Resus Stat 03/05/19 11:33 Ordered Medication Orders Acetaminophen (Tylenol) 650 mg PO Q4H PRN PRN Reason: Pain (Mild 1-3)/fever Last Admin: 03/05/19 12:24 Dose: 650 mg Acetaminophen/Diphenhydramine HCl (Tylenol Pm Extra Strength) 1 tab PO BEDTIME [facility] Aspirin (Halfprin) 81 mg PO DAILY [facility] Atorvastatin Calcium (Lipitor) 40 mg PO BEDTIME [facility] Carbamazepine (Tegretol Tab) 400 mg PO BID [facility] Carvedilol (Coreg) 6.25 mg PO BIDMEALS [facility] Hydromorphone HCl (Dilaudid) 0.25 mg IVPUSH Q2H PRN PRN Reason: Pain (severe 7-10) Lactated Ringer's (Ringers, Lactated) 1,000 mls @ 125 mls/hr IV ASDIRECTED [facility] Last Admin: 03/05/19 14:06 Dose: 125 mls/hr Levetiracetam (Keppra) 500 mg PO BID [facility] Nitroglycerin (Nitrostat) 0.4 mg SL Q5M PRN PRN Reason: Chest Pain Ondansetron HCl (Zofran) 4 mg IV Q6H PRN PRN Reason: Nausea/Vomiting Pantoprazole Sodium (Protonix Iv) 40 mg IVPUSH BID@1000,2200 [facility] Last Admin: 03/05/19 12:12 Dose: 40 mg
[2019-03-05] MEDS: Carvedilol 6.25 MG Tab PO SCH (17:35)
[2019-03-05] MEDS: levETIRAcetam 500 MG Tab PO SCH (20:55)
[2019-03-05] MEDS: carBAMazepine 200 MG Tab PO SCH (20:55)
[2019-03-05] MEDS: atorvaSTATin 40 MG Tab PO SCH (20:56)
[2019-03-05] MEDS: Acetaminophen/Diphenhydramine 500-25 MG Tab PO SCH (20:56)
[2019-03-06] MEDS: Lactated Ringers 1,000 ML IV SCH ×3 (05:09→20:37)
[2019-03-06] MEDS: Acetaminophen 325 MG Tab PO PRN ×4 (06:48→20:28)
[2019-03-06 07:11] LABS: CHLORIDE,CL 100 mmol/L (98-107); SODIUM,NA 138 mmol/L (136-145)
[2019-03-06] MEDS: carBAMazepine 200 MG Tab PO SCH ×2 (07:39→20:20)
[2019-03-06] MEDS: Aspirin 81 MG Tab.EC PO SCH (07:39)
[2019-03-06] MEDS: Carvedilol 6.25 MG Tab PO SCH ×2 (07:39→18:09)
[2019-03-06] MEDS: levETIRAcetam 500 MG Tab PO SCH ×2 (07:39→20:21)
[2019-03-06] MEDS: Pantoprazole 40 MG Vial IVPUSH SCH ×2 (10:55→21:43)
--- NOTE | 2019-03-06 11:34 | PCM.PN ---
- General Info Date of Service: 03/06/19 Admission Dx/Problem (Free Text): History: Admitted in a.m. of 03/05, yesterday, with black vomitus and very dark or black stools, initially Hb was 11.2, with IV resuscitation (had not been eating or drinking much for a couple days) her Hb went down to 9.7 yesterday p.m., and this a.m. down to 9.3, still less than 2 g. There was a drop in her K+, from 3.7 down to 3.0, and in creatinine, from 1.0 down to 0.8, so at least some of the drop in Hb is probably from dilution. Has about 3 drinks of alcohol per week, has not smoked for 12 years, no Hx of ulcer disease or GI bleeding. She has been on both Plavix and aspirin, but her coronary stenting procedure was 05/28, so she is a candidate for stopping Plavix now. She had one episode of vomiting this morning, with very dark liquid which she saved to show me. She does not have any more abdominal pain, is feeling quite comfortable. HENRY has her scheduled for a EGD on 03/18/19. Exam: -Lying flat without dyspnea, no respiratory or other distress -Heart sounds normal and regular -Abdomen soft and nontender, not distended Impression: -Apparent small UGI bleed, seems to be not bleeding actively now -Main risk factor was use of Plavix and aspirin following a PTCI in 05/28, can stop that now Plan: -Repeat Hb this afternoon and D/C home if no further drop -Continue omeprazole 20 mg BID -D/C Plavix, continue ASA only for now until 03/11/19, then hold that for a week before her EGD - Patient Data Vitals - Most Recent: Last Vital Signs Temp 37.6 C 03/06/19 09:34 Pulse 87 03/06/19 09:34 Resp 16 03/06/19 09:34 BP 144/90 H 03/06/19 09:34 Pulse Ox 99 03/06/19 09:34 Weight - Most Recent: 46.266 kg I&O - Last 24 Hours: Intake & Output 03/05/19 03/06/19 03/06/19 22:59 06:59 14:59 Intake Total 100 3435 5 Output Total 300 550 500 Balance -200 4244 -206 Lab Results Last 24 Hours: Laboratory Results - last 24 hr 03/05/19 03/05/19 03/05/19 Range/Units 11:45 11:45 11:45 WBC 4.4 (4.0-10.0) x10^3/uL RBC 3.55 L (4.00-5.50) x10^6/uL Hgb 11.2 L (12.0-16.0) g/dL Hct 35.1 (33.0-47.0) % MCV 98.9 H D (78.0-93.0) fL MCH 31.5 (26.0-32.0) pg MCHC 31.9 L (32.0-36.0) g/dL RDW Coeff of Alejandro 12.6 (10.0-15.0) % Plt Count 212 (130-400) x10^3/uL Neut % (Auto) 64.1 (50.0-80.0) % Lymph % (Auto) 26.2 (25.0-50.0) % [place] % (Auto) 7.4 (2.0-11.0) % Eos % (Auto) 1.6 (0.0-4.0) % Baso % (Auto) 0.7 (0.2-1.2) % Sodium 138 (136-145) mmol/L Potassium 3.7 (3.5-5.1) mmol/L Chloride 99 (98-107) mmol/L Carbon Dioxide 18 L (21-32) mmol/L Anion Gap 24.7 H (10-20) mmol/L BUN 14 (7-18) mg/dL Creatinine 1.0 (0.55-1.02) mg/dL Est Cr Clr Drug Dosing 45.88 mL/min Estimated GFR (MDRD) 57 Glucose 82 (74-106) mg/dL Lactic Acid 0.7 (0.4-2.0) mmol/L Calcium 9.0 (8.5-10.1) mg/dL Magnesium 1.4 L (1.8-2.4) mg/dL C-Reactive Protein < 0.2 (<=0.9) mg/dL Lipase 193 (73-393) U/L 03/05/19 03/06/19 03/06/19 Range/Units 19:30 06:35 06:35 WBC 6.2 (4.0-10.0) x10^3/uL RBC 2.96 L (4.00-5.50) x10^6/uL Hgb 9.7 L D 9.3 L (12.0-16.0) g/dL Hct 28.6 L (33.0-47.0) % MCV 96.6 H (78.0-93.0) fL MCH 31.4 (26.0-32.0) pg MCHC 32.5 (32.0-36.0) g/dL RDW Coeff of Alejandro 12.0 (10.0-15.0) % Plt Count 142 (130-400) x10^3/uL Neut % (Auto) 75.6 (50.0-80.0) % Lymph % (Auto) 13.7 L (25.0-50.0) % [place] % (Auto) 9.1 (2.0-11.0) % Eos % (Auto) 1.1 (0.0-4.0) % Baso % (Auto) 0.5 (0.2-1.2) % Sodium 138 (136-145) mmol/L Potassium 3.0 L (3.5-5.1) mmol/L Chloride 100 (98-107) mmol/L Carbon Dioxide 19 L (21-32) mmol/L Anion Gap 22.0 H (10-20) mmol/L BUN 8 (7-18) mg/dL Creatinine 0.8 (0.55-1.02) mg/dL Est Cr Clr Drug Dosing 57.35 mL/min Estimated GFR (MDRD) > 60 Glucose 65 L (74-106) mg/dL Lactic Acid (0.4-2.0) mmol/L Calcium 8.1 L (8.5-10.1) mg/dL Magnesium (1.8-2.4) mg/dL C-Reactive Protein (<=0.9) mg/dL Lipase (73-393) U/L Med Orders - Current: Current Medications Acetaminophen (Tylenol) 650 mg PO Q4H PRN PRN Reason: Pain (Mild 1-3)/fever Last Admin: 03/06/19 06:48 Dose: 650 mg Acetaminophen/Diphenhydramine HCl (Tylenol Pm Extra Strength) 1 tab PO BEDTIME [facility] Last Admin: 03/05/19 20:56 Dose: 1 tab Aspirin (Halfprin) 81 mg PO DAILY [facility] Last Admin: 03/06/19 07:39 Dose: 81 mg Atorvastatin Calcium (Lipitor) 40 mg PO BEDTIME [facility] Last Admin: 03/05/19 20:56 Dose: 40 mg Carbamazepine (Tegretol Tab) 400 mg PO BID [facility] Last Admin: 03/06/19 07:39 Dose: 400 mg Carvedilol (Coreg) 6.25 mg PO BIDMEALS [facility] Last Admin: 03/06/19 07:39 Dose: 6.25 mg Hydromorphone HCl (Dilaudid) 0.25 mg IVPUSH Q2H PRN PRN Reason: Pain (severe 7-10) Lactated Ringer's (Ringers, Lactated) 1,000 mls @ 125 mls/hr IV ASDIRECTED [facility] Last Admin: 03/06/19 05:09 Dose: 125 mls/hr Levetiracetam (Keppra) 500 mg PO BID [facility] Last Admin: 03/06/19 07:39 Dose: 500 mg Nitroglycerin (Nitrostat) 0.4 mg SL Q5M PRN PRN Reason: Chest Pain Ondansetron HCl (Zofran) 4 mg IV Q6H PRN PRN Reason: Nausea/Vomiting Last Admin: 03/06/19 05:33 Dose: 4 mg Pantoprazole Sodium (Protonix Iv) 40 mg IVPUSH BID@1000,2200 [facility] Last Admin: 03/06/19 10:55 Dose: 40 mg Discontinued Medications Magnesium Sulfate 2 gm/ Premix 50 mls @ 25 mls/hr IV ONETIME ONE Stop: 03/05/19 17:53 Last Admin: 03/05/19 16:33 Dose: 25 mls/hr - Problem List Review Problem List Initiated/Reviewed/Updated: Yes - My Orders Last 24 Hours: My Active Orders 03/06/19 15:00 HEMOGLOBIN [HEME] Routine
[2019-03-06] MEDS: Acetaminophen/Diphenhydramine 500-25 MG Tab PO SCH (20:21)
[2019-03-06] MEDS: atorvaSTATin 40 MG Tab PO SCH (20:24)
[2019-03-07] MEDS: Lactated Ringers 1,000 ML IV SCH (04:41)
[2019-03-07] MEDS: carBAMazepine 200 MG Tab PO SCH (07:35)
[2019-03-07] MEDS: Carvedilol 6.25 MG Tab PO SCH (07:35)
[2019-03-07] MEDS: Aspirin 81 MG Tab.EC PO SCH (07:35)
[2019-03-07] MEDS: levETIRAcetam 500 MG Tab PO SCH (07:35)
[2019-03-07] MEDS: Pantoprazole 40 MG Vial IVPUSH SCH (09:46)
[2019-03-07 09:54] VITALS: BP 150/87
--- NOTE | 2019-03-07 09:56 | PCM.DCSUM1 ---
Discharge Summary - Hospital Course Free Text/Narrative:: Hemoglobin has stabilized at 8.8 and vomiting has slowed. Stools a bit loose without cindy diarrhea. Appears to be upper GI bleed which usually be from an ulcer in patient on combine Plavix and aspirin. Can stop Plavix given it's been more than a year since stent in place. Need to continue lifelong baby aspirin 81 mg. Start Protonix 40 mg two times a day to decrease acid and help ulcer to heal. Resume other heart and blood pressure medicines. Return to clinic on Monday for blood draw to recheck hemoglobin. Return to clinic or ER sooner if bleeding is worse, not tolerating oral in take and pills etc. Otherwise stomach scope in 10d. If continued to have issues stools we could consider colonoscopy. - Discharge Data Discharge Date: 03/07/19 Discharge Disposition: Home, Self-Care 01 Condition: Good - Discharge Plan *PRESCRIPTION DRUG MONITORING PROGRAM REVIEWED*: Not Applicable *COPY OF PRESCRIPTION DRUG MONITORING REPORT IN PATIENT EDDY: Not Applicable Prescriptions/Med Rec: Pantoprazole [ProTONIX IV] 40 mg PO BID #60 tab Home Medications: Home Meds carBAMazepine [Carbamazepine] 400 mg PO BID 11/08/15 [History] Acetaminophen 650 mg PO Q4HR PRN 03/05/19 [History] Acetaminophen/Diphenhydramine [Acetaminophen Pm Caplet] 1 each PO BEDTIME [History] Aspirin [Halfprin] 81 mg PO DAILY 03/05/19 [History] Carvedilol [Coreg] 6.25 mg PO BIDMEALS 03/05/19 [History] Clopidogrel [Plavix] 75 mg PO DAILY 03/05/19 [History] Lisinopril 10 mg PO BID 03/05/19 [History] Nitroglycerin [Nitrostat] 0.4 mg SL ASDIRECTED PRN 03/05/19 [History] atorvaSTATin [Lipitor] 40 mg PO BEDTIME 03/05/19 [History] levETIRAcetam [Keppra] 500 mg PO BID 03/05/19 [History] Acetaminophen [Tylenol] 650 mg PO Q4H PRN tablet 03/07/19 [Rx] Nitroglycerin [Nitrostat] 0.4 mg SL Q5M PRN tab.sl 03/07/19 [Rx] Pantoprazole [ProTONIX IV] 40 mg PO BID #60 tab 03/07/19 [Rx] Patient Handouts: Gastrointestinal Bleeding, [id number] - Discharge Summary/Plan Comment DC Time >30 min.: No - Patient Data Vitals - Most Recent: Last Vital Signs Temp 36.7 C 03/07/19 09:53 Pulse 87 03/07/19 09:53 Resp 20 03/07/19 09:53 BP 150/87 H 03/07/19 09:53 Pulse Ox 99 03/07/19 09:53 Weight - Most Recent: 46.266 kg I&O - Last 24 hours: Intake & Output 03/06/19 03/07/19 03/07/19 22:59 06:59 14:59 Intake Total 2905 3281 120 Output Total 950 3 Balance 1955 3278 120 Lab Results - Last 24 hrs: Laboratory Results - last 24 hr 03/06/19 03/07/19 Range/Units 14:58 06:16 Hgb 8.8 L 8.8 L (12.0-16.0) g/dL Med Orders - Current: Current Medications Acetaminophen (Tylenol) 650 mg PO Q4H PRN PRN Reason: Pain (Mild 1-3)/fever Last Admin: 03/06/19 20:28 Dose: 650 mg Acetaminophen/Diphenhydramine HCl (Tylenol Pm Extra Strength) 1 tab PO BEDTIME [facility] Last Admin: 03/06/19 20:21 Dose: 1 tab Aspirin (Halfprin) 81 mg PO DAILY [facility] Last Admin: 03/07/19 07:35 Dose: 81 mg Atorvastatin Calcium (Lipitor) 40 mg PO BEDTIME [facility] Last Admin: 03/06/19 20:24 Dose: 40 mg Carbamazepine (Tegretol Tab) 400 mg PO BID [facility] Last Admin: 03/07/19 07:35 Dose: 400 mg Carvedilol (Coreg) 6.25 mg PO BIDMEALS [facility] Last Admin: 03/07/19 07:35 Dose: 6.25 mg Hydromorphone HCl (Dilaudid) 0.25 mg IVPUSH Q2H PRN PRN Reason: Pain (severe 7-10) Lactated Ringer's (Ringers, Lactated) 1,000 mls @ 125 mls/hr IV ASDIRECTED [facility] Last Admin: 03/07/19 04:41 Dose: 125 mls/hr Levetiracetam (Keppra) 500 mg PO BID [facility] Last Admin: 03/07/19 07:35 Dose: 500 mg Nitroglycerin (Nitrostat) 0.4 mg SL Q5M PRN PRN Reason: Chest Pain Ondansetron HCl (Zofran) 4 mg IV Q6H PRN PRN Reason: Nausea/Vomiting Last Admin: 03/06/19 05:33 Dose: 4 mg Pantoprazole Sodium (Protonix Iv) 40 mg IVPUSH BID@1000,2200 [facility] Last Admin: 03/07/19 09:46 Dose: 40 mg Discontinued Medications Magnesium Sulfate 2 gm/ Premix 50 mls @ 25 mls/hr IV ONETIME ONE Stop: 03/05/19 17:53 Last Admin: 03/05/19 16:33 Dose: 25 mls/hr
== END 2019-03-07 10:45 | disposition home or self-care (01) | DRG 378 ==
LOC: VM.MS 11:17
PROVIDERS: ADMIT Family Medicine; ATTEND Family Medicine
DX: K92.2 Gastrointestinal hemorrhage, unspecified (principal); E87.2 Acidosis; I50.22 Chronic systolic (congestive) heart failure; I25.10 Atherosclerotic heart disease of native coronary artery without angina pectoris; G40.909 Epilepsy, unspecified, not intractable, without status epilepticus; E78.00 Pure hypercholesterolemia, unspecified; F41.9 Anxiety disorder, unspecified; E78.5 Hyperlipidemia, unspecified; Z90.49 Acquired absence of other specified parts of digestive tract; Z79.899 Other long term (current) drug therapy; Z90.89 Acquired absence of other organs; Z79.82 Long term (current) use of aspirin; Z87.891 Personal history of nicotine dependence
CPT/HCPCS: 36415; 74176; 80048; 82274; 83605; 83690; 83735; 85018; 85025; 86140; A4217; A9270-GY; C9113; J2405; J3475; J7120

== ENCOUNTER 2019-03-18 07:19 | Day surgery (SDC) | payer MEDICAID ==
[~2019-03-18 07:19] MED LIST: Lactated Ringers 1,000 ML IV SCH
[2019-03-18] MEDS ORDERED: fentaNYL 100 MCG/2 ML SDV ONE (09:03)
[2019-03-18] MEDS ORDERED: Propofol 200 MG/20 ML SDV ONE ×3 (09:03→09:33)
[2019-03-18 11:15] VITALS: BP 167/74; PULSE 73
--- NOTE | 2019-03-18 11:22 | OR ---
PREOPERATIVE DIAGNOSIS: Recent upper gastrointestinal bleed. POSTOPERATIVE DIAGNOSIS: Gastritis with petechial hemorrhage. PROCEDURE PROPOSED AND PROCEDURE DONE: Upper gastrointestinal panendoscopy with antral biopsies. INDICATION: This is a 58-year-old female who was recently hospitalized with some dark tarry stools and hematemesis. It was felt that she had an upper GI bleed. Her bowels are now back to normal. She is presently taking Protonix, and she was referred for endoscopy. TECHNIQUE: The patient was brought to the endoscopy suite and placed in the left lateral decubitus position. She was sedated per [employer] with propofol. The flexible video gastroscope was then passed transorally and under visualization, advanced well into the duodenum. The duodenum and duodenal bulb were unremarkable. No signs of any inflammation or ulceration. The pre-pyloric region did reveal a moderate amount of inflammation, and she had some petechial hemorrhage throughout the distal portion of the stomach, compatible with a hemorrhagic gastritis that is resolving. She did not have any significant hiatal hernia. There are no signs of any GERD or Schatzki ring or stenosis, and the remainder of the esophagus was normal. As the scope was then withdrawn, a couple of antral biopsies were taken to rule out H. pylori. FINAL IMPRESSION: Diffuse gastritis with petechial hemorrhage, resolving. PLAN: The patient is already on Protonix for about the last 8 to 9 days, and she should take that for a full 8 weeks. She needs to avoid caffeine, alcohol, nicotine, ibuprofen and follow up with her PCP as needed. SCM: 03/18/2019 10:43:19 MODL: 03/18/2019 11:02:45 /[id number]
--- NOTE | 2019-03-29 08:12 | LETTER ---
03/29/2019 Evie Lentz. RE: EVIEBrendan NICOLE JUNIOR : 1960 Dear Evie: The biopsies taken from your stomach did reveal some inflammation, but there were no worrisome changes within the biopsy. Also, we do not have the bacteria known as H. pylori in your stomach. I am hoping that you are feeling better. If you have any further concerns, you should consult with your family doctor. Respectfully,
== END 2019-03-18 11:45 | disposition home or self-care (01) ==
LOC: VM.SDS 07:19
PROVIDERS: ATTEND Surgery
DX: K29.71 Gastritis, unspecified, with bleeding (principal); R23.3 Spontaneous ecchymoses; I65.29 Occlusion and stenosis of unspecified carotid artery; I11.0 Hypertensive heart disease with heart failure; I50.9 Heart failure, unspecified; I25.2 Old myocardial infarction; E78.5 Hyperlipidemia, unspecified; G40.909 Epilepsy, unspecified, not intractable, without status epilepticus; F41.9 Anxiety disorder, unspecified; F32.9 Major depressive disorder, single episode, unspecified; Z79.82 Long term (current) use of aspirin; Z79.899 Other long term (current) drug therapy; Z79.02 Long term (current) use of antithrombotics/antiplatelets; Z90.49 Acquired absence of other specified parts of digestive tract; Z87.891 Personal history of nicotine dependence; Z95.5 Presence of coronary angioplasty implant and graft
CPT/HCPCS: 43239; J2704; J3010; J7120